=== PATIENT | female | born 1970 | race Caucasian/White ===

== ENCOUNTER 2016-12-15 13:42 | Emergency (ER) | payer MEDICAID, OTHER ==
--- NOTE | 2016-12-15 13:51 | EDM.PDOC ---
ED HPI ENT - General Chief Complaint: ENT Problem Stated Complaint: EAR HURTS Time Seen by Provider: 12/15/16 13:44 - History of Present Illness INITIAL COMMENTS - FREE TEXT/NARRATIVE: History of present illness: 46 female s/p left cholesteoma in 2005 with left ear pain x 2 months. She was seen in ED in [place] last month and was prescriped ear drops which helped her. She was also seen in this ED and given oflaxacin drop wheich helped. Now she has recurrent left ear pain with dry crusted material that fell off. No fever, chills, toothache, right ear ache, swollen lymph notes, n/v/d or other pertinent symptoms. [] Review of systems: As per history of present illness and below otherwise all systems reviewed and negative. Past medical history: As per history of present illness and as reviewed below otherwise noncontributory. Surgical history: As per history of present illness and as reviewed below otherwise noncontributory. Social history: No reported history of drug or alcohol abuse. Family history: As per history of present illness and as reviewed below otherwise noncontributory. Physical exam: General: Well developed, well nourished in NAD HEENT: Atraumatic, normocephalic, pupils reactive, negative for conjunctival pallor or scleral icterus, mucous membranes moist, throat clear, neck supple, nontender, trachea midline. Left Ear: no TM visualized. No erythema. has slight yellow-white discharge. Lungs: Clear to auscultation, breath sounds equal bilaterally, chest nontender. Heart: S1S2, regular, negative for clicks, rubs, or JVD. Abdomen: Soft, nondistended, nontender. Negative for masses or hepatosplenomegaly. Negative for costovertebral tenderness. Pelvis: Stable nontender. Genitourinary: Deferred. Rectal: Deferred. Extremities: Atraumatic, negative for cords or calf pain. Neurovascular unremarkable. Neuro: Awake, alert, oriented. Cranial nerves II through XII unremarkable. Cerebellum unremarkable. Motor and sensory unremarkable throughout. Exam nonfocal. Diagnostics: [] Therapeutics: [] Impression: [Left otits externa] Plan: [Rx corticosporin HC otic suspension x 10 days referral to ENT] Definitive disposition and diagnosis as appropriate pending reevaluation and review of above. - Related Data Allergies/ADRs: Allergies Allergy/AdvReac Type Severity Reaction Status Date / Time No Known Allergies Allergy Verified 12/15/16 13:51 Home Meds: Home Meds Gemfibrozil [Gemfibrozil] 1 tab PO BID 10/30/15 [History] Past Medical History Cardiovascular History: Reports: High cholesterol Other OB/BYN History: CSx1 Neurological History: Reports: None - Infectious Disease History Infectious Disease History: Reports: Chicken pox Social & Family History - Family History Family Medical History: Noncontributory - Tobacco Use Smoking Status *Q: Current Every Day Smoker Years of Tobacco use: 30 Packs/Tins Daily: 1 Used Tobacco, but Quit: No Second Hand Smoke Exposure: Yes - Caffeine Use Caffeine Use: Reports: Coffee - Recreational Drug Use Recreational Drug Use: No ED ROS ENT - Review of Systems Review Of Systems: See Below (see history of present illness) ED EXAM, ENT - Physical Exam Exam: See Below (see history of present illness) Course - Vital Signs Last Recorded V/S: Last Vital Signs Temp 97.7 F 12/15/16 13:52 Pulse 109 H 12/15/16 13:52 Resp 18 12/15/16 13:52 BP 140/66 12/15/16 13:52 Pulse Ox 95 12/15/16 13:52 Departure - Departure Time of Disposition: 14:26 Disposition: Home, Self-Care 01 Clinical Impression: Otitis externa Forms: ED Department Discharge Additional Instructions: The following information is given to patients seen in the emergency department who are being discharged to home. This information is to outline your options for follow-up care. We provide all patients seen in our emergency department with a follow-up referral. The need for follow-up, as well as the timing and circumstances, are variable depending upon the specifics of your emergency department visit. If you don't have a primary care physician on staff, we will provide you with a referral. We always advise you to contact your personal physician following an emergency department visit to inform them of the circumstance of the visit and for follow-up with them and/or the need for any referrals to a consulting specialist. The emergency department will also refer you to a specialist when appropriate. This referral assures that you have the opportunity for follow-up care with a specialist. All of these measure are taken in an effort to provide you with optimal care, which includes your follow-up. Under all circumstances we always encourage you to contact your private physician who remains a resource for coordinating your care. When calling for follow-up care, please make the office aware that this follow-up is from your recent emergency room visit. If for any reason you are refused follow-up, please contact the [facility] Emergency Department at and asked to speak to the emergency department charge nurse.
[2016-12-15 15:14] VITALS: BP 121/74
== END 2016-12-15 14:46 | disposition home or self-care (01) ==
LOC: MW.ED 13:42
DX: H60.92 Unspecified otitis externa, left ear (principal); F17.210 Nicotine dependence, cigarettes, uncomplicated; E78.00 Pure hypercholesterolemia, unspecified
CPT/HCPCS: 99282; 99283

== ENCOUNTER 2017-02-19 20:16 | Emergency (ER) | payer OTHER ==
[2017-02-19] MEDS ORDERED: Albuterol/Ipratropium 3.0-0.5 MG/3 ML Neb Soln NEB ONE (20:22)
--- NOTE | 2017-02-19 21:29 | EDM.PDOC ---
ED HPI GENERAL MEDICAL PROBLEM - General Chief Complaint: Respiratory Problem Stated Complaint: HARD TIME BREATHING Time Seen by Provider: 02/19/17 21:24 Source of Information: Reports: Patient History Limitations: Reports: No Limitations - History of Present Illness INITIAL COMMENTS - FREE TEXT/NARRATIVE: History of present illness: [46 yr old female coming in complaining of shortness of breath indicates that she knows that she has quit smoking but right now she is having trouble breathing. Patient indicated immediately that she just "wanted her breathing treatment" she was interested in "anything else"] Review of systems: As per history of present illness and below otherwise all systems reviewed and negative. Past medical history: As per history of present illness and as reviewed below otherwise noncontributory. Surgical history: As per history of present illness and as reviewed below otherwise noncontributory. Social history: No reported history of drug or alcohol abuse. Family history: As per history of present illness and as reviewed below otherwise noncontributory. Physical exam: HEENT: Atraumatic, normocephalic, pupils reactive, negative for conjunctival pallor or scleral icterus, mucous membranes moist, throat clear, neck supple, nontender, trachea midline. Lungs: Breath sounds diminished in all collado posterior lungs with minimal air movement, chest nontender. Heart: S1S2, regular, negative for clicks, rubs, or JVD. Abdomen: Soft, nondistended, nontender. Negative for masses or hepatosplenomegaly. Negative for costovertebral tenderness. Pelvis: Stable nontender. Genitourinary: Deferred. Rectal: Deferred. Extremities: Atraumatic, negative for cords or calf pain. Neurovascular unremarkable. Neuro: Awake, alert, oriented. Cranial nerves II through XII unremarkable. Cerebellum unremarkable. Motor and sensory unremarkable throughout. Exam nonfocal. Duo neb given. Patient now with a productive cough and indicating that she feels better. Breath sounds improved but still somewhat diminished patient declined further intervention states anything else makes her "shaky". Discussed need for patient followup with primary care and referral to pulmonology patient indicated she was uninsured. Information provided [facility]. Diagnostics: [CBC, CMP, UA] Therapeutics: [Duo neb] Impression: [UTI, SOB] Plan: [Macrobid] Definitive disposition and diagnosis as appropriate pending reevaluation and review of above. - Related Data Allergies Allergy/AdvReac Type Severity Reaction Status Date / Time No Known Allergies Allergy Verified 12/15/16 13:51 Home Meds: Home Meds Gemfibrozil [Gemfibrozil] 1 tab PO BID 10/30/15 [History] Nitrofurantoin Monohyd/M-Cryst [Macrobid 100 mg Capsule] 100 mg PO BID #20 capsule 02/19/17 [Rx] Past Medical History Cardiovascular History: Reports: High Cholesterol Other OB/BYN History: CSx1 Neurological History: Reports: None - Infectious Disease History Infectious Disease History: Reports: Chicken Pox Social & Family History - Family History Family Medical History: Noncontributory - Tobacco Use Smoking Status *Q: Current Every Day Smoker Years of Tobacco use: 30 Packs/Tins Daily: 1 Used Tobacco, but Quit: No Second Hand Smoke Exposure: Yes - Caffeine Use Caffeine Use: Reports: Coffee - Recreational Drug Use Recreational Drug Use: No ED ROS GENERAL - Review of Systems Review Of Systems: See Below (See history of present illness) ED EXAM, GENERAL - Physical Exam Exam: See Below (History of present illness) Course - Vital Signs Last Recorded V/S: Last Vital Signs Temp 36.5 C 02/19/17 20:16 Pulse 126 H 02/19/17 20:16 Resp 18 02/19/17 20:16 BP 203/86 H 02/19/17 20:16 Pulse Ox 95 02/19/17 20:16 - Orders/Labs/Meds Orders: Active Orders 24 hr Category Date Time Status RT Aerosol Therapy [RC] ASDIRECTED Care 02/19/17 20:22 Ordered CBC WITH AUTO DIFF [HEME] Stat Lab 02/19/17 20:23 Ordered COMPREHENSIVE METABOLIC PN,CMP [CHEM] Stat Lab 02/19/17 20:23 Ordered Labs: Laboratory Tests 02/19/17 02/19/17 02/19/17 Range/Units 20:48 20:48 20:55 WBC 10.91 (4.0-11.0) K/uL RBC 3.66 L (4.30-5.90) M/uL Hgb 13.6 (12.0-16.0) g/dL Hct 38.8 (36.0-46.0) % MCV 106.0 H (80.0-98.0) fL MCH 37.2 H (27.0-32.0) pg MCHC 35.1 (31.0-37.0) g/dL RDW Std Deviation 61.2 (28.0-62.0) fl RDW Coeff of Favio 16 H (11.0-15.0) % Plt Count 313 (150-400) K/uL MPV 10.50 (7.40-12.00) fL Add Manual Diff YES Neutrophils % (Manual) 46 L (48.0-80.0) % Band Neutrophils % 2 % Lymphocytes % (Manual) 43 H (16.0-40.0) % Monocytes % (Manual) 4 (0.0-15.0) % Eosinophils % (Manual) 3 (0.0-7.0) % Basophils % (Manual) 2 H (0.0-1.5) % Nucleated RBC % 0.0 /100WBC Absolute Seg Neuts 5.0 Band Neutrophils # 0.2 Lymphocytes # (Manual) 4.7 Monocytes # (Manual) 0.4 Eosinophils # (Manual) 0.3 Basophils # (Manual) 0 Nucleated RBCs # 0 K/uL Urine Color YELLOW Urine Appearance SLT CLOUDY Urine pH 7.0 (5.0-8.0) Ur Specific [place] <= 1.005 (1.001-1.035) Urine Protein NEGATIVE (NEGATIVE) mg/dL Urine Glucose (UA) NEGATIVE (NEGATIVE) mg/dL Urine Ketones NEGATIVE (NEGATIVE) mg/dL Urine Occult Blood TRACE-INTACT (NEGATIVE) Urine Nitrite NEGATIVE (NEGATIVE) Urine Bilirubin NEGATIVE (NEGATIVE) Urine Urobilinogen 0.2 (<2.0) EU/dL Ur Leukocyte Esterase LARGE (NEGATIVE) Urine RBC 1-2 (0-2/HPF) Urine WBC 2-7 (0-5/HPF) Ur Epithelial Cells FEW (NONE-FEW) Urine Bacteria 1+ H (NEGATIVE) Urine Opiates Screen NEGATIVE (NEGATIVE) Ur Oxycodone Screen NEGATIVE (NEGATIVE) Urine Methadone Screen NEGATIVE (NEGATIVE) Ur Barbiturates Screen NEGATIVE (NEGATIVE) Ur Phencyclidine Scrn NEGATIVE (NEGATIVE) Ur Amphetamine Screen NEGATIVE (NEGATIVE) U Methamphetamines Scrn NEGATIVE (NEGATIVE) U Benzodiazepines Scrn NEGATIVE (NEGATIVE) U Cocaine Metab Screen NEGATIVE (NEGATIVE) U Marijuana (THC) Screen NEGATIVE (NEGATIVE) Meds: Medications Discontinued Medications Generic Name Dose Route Start Last Admin Trade Name Freq PRN Reason Stop Dose Admin Albuterol/Ipratropium 3 ml 02/19/17 20:22 02/19/17 20:28 Duoneb 3.0-0.5 Mg/3 Ml NEB 02/19/17 20:23 3 ml ONETIME ONE Administration Departure - Departure Time of Disposition: 21:32 Disposition: Home, Self-Care 01 Condition: good Clinical Impression: Exacerbation of asthma, UTI (urinary tract infection) - Discharge Information Prescriptions: Nitrofurantoin Monohyd/M-Cryst [Macrobid 100 mg Capsule] 100 mg PO BID #20 capsule Forms: ED Department Discharge Additional Instructions: The following information is given to patients seen in the emergency department who are being discharged to home. This information is to outline your options for follow-up care. We provide all patients seen in our emergency department with a follow-up referral. The need for follow-up, as well as the timing and circumstances, are variable depending upon the specifics of your emergency department visit. If you don't have a primary care physician on staff, we will provide you with a referral. We always advise you to contact your personal physician following an emergency department visit to inform them of the circumstance of the visit and for follow-up with them and/or the need for any referrals to a consulting specialist. The emergency department will also refer you to a specialist when appropriate. This referral assures that you have the opportunity for follow-up care with a specialist. All of these measure are taken in an effort to provide you with optimal care, which includes your follow-up. Under all circumstances we always encourage you to contact your private physician who remains a resource for coordinating your care. When calling for follow-up care, please make the office aware that this follow-up is from your recent emergency room visit. If for any reason you are refused follow-up, please contact the [facility] Emergency Department at and asked to speak to the emergency department charge nurse. Please take medication as directed Followup with PCP 1-2 days Return to ED as needed as discussed As discussed with you due to your low threshold of income he would be eligible for some nature of assistance with the [employer] act. You may find further information about this on line or at the psychosocial rehabilitation counselor office sometimes it is also refer to as Obamacare. [facility] [address] [place] [id number] - My Orders Last 24 Hours: My Active Orders 02/19/17 20:22 RT Aerosol Therapy [RC] ASDIRECTED 02/19/17 20:23 CBC WITH AUTO DIFF [HEME] Stat COMPREHENSIVE METABOLIC PN,CMP [CHEM] Stat - Assessment/Plan Last 24 Hours: My Active Orders 02/19/17 20:22 RT Aerosol Therapy [RC] ASDIRECTED 02/19/17 20:23 CBC WITH AUTO DIFF [HEME] Stat COMPREHENSIVE METABOLIC PN,CMP [CHEM] Stat
[2017-02-19 22:03] LABS: CHLORIDE,CL 100 mmol/L (98-110)
[2017-02-19 22:06] LABS: SODIUM,NA 140 mmol/L (136-146)
[2017-02-20 02:19] VITALS: BP 123/86
== END 2017-02-19 21:55 | disposition home or self-care (01) ==
LOC: MW.ED 20:16
DX: J45.901 Unspecified asthma with (acute) exacerbation (principal); N39.0 Urinary tract infection, site not specified; F17.210 Nicotine dependence, cigarettes, uncomplicated; Z98.890 Other specified postprocedural states
CPT/HCPCS: 36415; 80053; 80305; 81001; 85025; 94664; 99283; 99284

== ENCOUNTER 2017-05-03 19:10 | Emergency (ER) | payer OTHER, SELFPAY ==
--- NOTE | 2017-05-03 19:30 | EDM.PDOC ---
ED HPI GENERAL MEDICAL PROBLEM - General Chief Complaint: Respiratory Problem Stated Complaint: asthma attack, sob Time Seen by Provider: 05/03/17 19:16 - History of Present Illness INITIAL COMMENTS - FREE TEXT/NARRATIVE: HISTORY AND PHYSICAL: History of present illness: Patient is a 46-year-old female with a history of hypercholesterolemia anxiety asthma and alcohol use and presents with complaints of shortness of breath and anxiety that started 1-2 hours ago. The patient presented to triage stating that she felt short of breath but by the time I got into the room to see her she says that her symptoms are completely resolved. She feels she just had an episode of anxiety as her daughter was arrested today and aside from taking care of her own children she has to take care of her grandchildren. She does state that she drinks alcohol on a regular basis and she did drink today but not very much. She's been eating and drinking normally and has no chest pain shortness of breath abdominal pain nausea vomiting or any other systemic complaints on my evaluation. Review of systems: As per history of present illness and below otherwise all systems reviewed and negative. Past medical history: As per history of present illness and as reviewed below otherwise noncontributory. Surgical history: As per history of present illness and as reviewed below otherwise noncontributory. Social history: No reported history of drug or alcohol abuse. Family history: As per history of present illness and as reviewed below otherwise noncontributory. Physical exam: Gen.: Well-developed well-nourished female who is nontoxic and speaking clearly and easily in the ED. HEENT: Atraumatic, normocephalic, pupils reactive, negative for conjunctival pallor or scleral icterus, mucous membranes tacky, throat clear, neck supple, nontender, trachea midline. Lungs: Clear to auscultation, breath sounds equal bilaterally, chest nontender. There is no wheezing no stridor no worker breathing or sensory muscle use Heart: S1S2, regular rate and rhythm no overt murmur on my evaluation Abdomen: Soft, nondistended, nontender. NABS Skin: Normal turgor no evidence of any rashes or lesions Genitourinary: Deferred. Rectal: Deferred. Extremities: Atraumatic, negative for cords or calf pain. Neurovascular unremarkable. Neuro: Awake, alert, oriented. Cranial nerves II through XII unremarkable. Cerebellum unremarkable. Motor and sensory unremarkable throughout. Exam nonfocal. Diagnostics: I offered the patient and evaluation which she would like to decline Therapeutics: I offered the patient a aundrea curry due to her complaints of shortness of breath at presentation and her history of asthma/bronchitis and she declines at this time Patient says she doesn't want any testing or workup and that she feels completely resolved from her symptoms and think she just had a panic attack due to recent events. She would like to decline any of my evaluation and wants to go home Impression: Medical Screening exam/subjective anxiety attack resolved prior to evaluation Definitive disposition and diagnosis as appropriate pending reevaluation and review of above. 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: Other OB/BYN History: CSx1 Neurological History: Reports: None Psychiatric History: Reports: Anxiety - Infectious Disease History Infectious Disease History: Reports: Chicken Pox - Past Surgical History Female Surgical History: Reports: Section Social & Family History - Family History Family Medical History: Noncontributory - Tobacco Use Smoking Status *Q: Current Every Day Smoker Years of Tobacco use: 25 Packs/Tins Daily: 1 Used Tobacco, but Quit: No Second Hand Smoke Exposure: Yes - Caffeine Use Caffeine Use: Reports: Coffee - Recreational Drug Use Recreational Drug Use: Yes Recreational Drug Type: Reports: Methamphetamine Recreational Drug Use Frequency: Not Used In Over 1 Year ED ROS GENERAL - Review of Systems Review Of Systems: ROS reveals no pertinent complaints other than HPI. ED EXAM, GENERAL - Physical Exam Exam: See Below (See dictation) Course - Vital Signs Last Recorded V/S: Last Vital Signs Temp 36.2 C 05/03/17 19:12 Pulse 99 05/03/17 19:12 Resp 18 05/03/17 19:12 BP 177/98 H 05/03/17 19:12 Pulse Ox 95 05/03/17 19:12 Departure - Departure Time of Disposition: 19:29 Disposition: Home, Self-Care 01 Condition: Good Clinical Impression: Encounter for medical screening examination, Anxiety reaction - Discharge Information Forms: ED Department Discharge Additional Instructions: The following information is given to patients seen in the emergency department who are being discharged to home. This information is to outline your options for follow-up care. We provide all patients seen in our emergency department with a follow-up referral. The need for follow-up, as well as the timing and circumstances, are variable depending upon the specifics of your emergency department visit. If you don't have a primary care physician on staff, we will provide you with a referral. We always advise you to contact your personal physician following an emergency department visit to inform them of the circumstance of the visit and for follow-up with them and/or the need for any referrals to a consulting specialist. The emergency department will also refer you to a specialist when appropriate. This referral assures that you have the opportunity for followup care with a specialist. All of these measure are taken in an effort to provide you with optimal care, which includes your followup. Under all circumstances we always encourage you to contact your private physician who remains a resource for coordinating your care. When calling for followup care, please make the office aware that this follow-up is from your recent emergency room visit. If for any reason you are refused follow-up, please contact the [facility] emergency department at and ask to speak to the emergency department charge nurse. [facility] Primary care- Internal Medicine and Family [address] [id number] Please call and follow-up with one of our clinic physicians and push hydration as we discussed. Try to avoid alcohol use if possible and use resources given to her outpatient options. Return to ER as needed and as discussed
[2017-05-03 19:44] VITALS: BP 143/93
== END 2017-05-03 19:41 | disposition home or self-care (01) ==
LOC: MW.ED 19:10
DX: F41.1 Generalized anxiety disorder (principal); J44.9 Chronic obstructive pulmonary disease, unspecified; E78.00 Pure hypercholesterolemia, unspecified; F17.210 Nicotine dependence, cigarettes, uncomplicated
CPT/HCPCS: 99282; 99283

== ENCOUNTER 2017-08-17 21:42 | Emergency (ER) | payer OTHER, SELFPAY ==
[2017-08-17] MEDS ORDERED: Sodium Chloride 0.9% 1,000 ML IV ONE (21:51)
--- NOTE | 2017-08-17 21:51 | EDM.PDOC ---
ED HPI GENERAL MEDICAL PROBLEM - General Stated Complaint: UNKNOWN Time Seen by Provider: 08/17/17 21:51 Source of Information: Reports: Patient, EMS - History of Present Illness INITIAL COMMENTS - FREE TEXT/NARRATIVE: HISTORY AND PHYSICAL: History of present illness: [Patient presents via EMS She has suicide attempt by ingestion of drugs is he 50 mg tablets is believed she did ingestion 30 tablets prior to arrival, she is vomited several times her daughter notes that there were many pills in the first episode of vomiting. Patient is alert and relates these events to a child's 16 years prior she is had several ingestion and attempts in the interim but has not been seen by psych or another physician per patient night. She is quite intoxicated. No fever chills sweats no chest pain shortness breath headache dizziness or palpitation no bowel or urine symptoms Denies previous psychiatric diagnosis chronic illness or disease denies chronic medications Medications tonight where her daughters apparently she did fill the prescription and then taken the medication. ] Review of systems: As per history of present illness and below otherwise all systems reviewed and negative. Past medical history: As per history of present illness and as reviewed below otherwise noncontributory. Surgical history: As per history of present illness and as reviewed below otherwise noncontributory. Social history: No reported history of drug or alcohol abuse. Family history: As per history of present illness and as reviewed below otherwise noncontributory. Physical exam: HEENT: Atraumatic, normocephalic, pupils reactive, negative for conjunctival pallor or scleral icterus, mucous membranes moist, throat clear, neck supple, nontender, trachea midline. Lungs: Clear to auscultation, breath sounds equal bilaterally, chest nontender. Heart: S1S2, regular, negative for clicks, rubs, or JVD. Abdomen: Soft, nondistended, nontender. Negative for masses or hepatosplenomegaly. Negative for costovertebral tenderness. Pelvis: Stable nontender. Genitourinary: Deferred. Rectal: Deferred. Extremities: Atraumatic, negative for cords or calf pain. Neurovascular unremarkable. Neuro: Awake, alert, oriented. Cranial nerves II through XII unremarkable. Cerebellum unremarkable. Motor and sensory unremarkable throughout. Exam nonfocal. Diagnostics: []Lab as below EKG Chest 1 view Therapeutics: []Banana bag Normal saline with 40 mEq of potassium Impression: []Suicide attempt by ingestion Hyperkalemia Alcohol intoxication Alcohol use abuse and dependence Definitive disposition and diagnosis as appropriate pending reevaluation and review of above. 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 OB/BYN History: CSx1 Musculoskeletal History: Reports: None Neurological History: Reports: None Psychiatric History: Reports: Anxiety Endocrine/Metabolic History: Reports: None Hematologic History: Reports: None Dermatologic History: Reports: None - Infectious Disease History Infectious Disease History: Reports: Chicken Pox - Past Surgical History Female Surgical History: Reports: Section Social & Family History - Family History Family Medical History: Noncontributory - Tobacco Use Smoking Status *Q: Current Every Day Smoker Years of Tobacco use: 25 Packs/Tins Daily: 1 Used Tobacco, but Quit: No Second Hand Smoke Exposure: Yes - Caffeine Use Caffeine Use: Reports: Coffee - Recreational Drug Use Recreational Drug Use: Yes Recreational Drug Type: Reports: Methamphetamine Recreational Drug Use Frequency: Not Used In Over 1 Year ED ROS GENERAL - Review of Systems Review Of Systems: ROS reveals no pertinent complaints other than HPI. ED EXAM, GENERAL - Physical Exam Exam: See Below Course - Vital Signs Last Recorded V/S: Last Vital Signs Temp 97.2 F 08/17/17 22:47 Pulse 94 08/17/17 23:44 Resp 18 08/17/17 23:44 BP 135/94 H 08/17/17 22:47 Pulse Ox 95 08/17/17 23:44 - Orders/Labs/Meds Orders: Active Orders 24 hr Category Date Time Status EKG 12 Lead [EKG Documentation Completion] [RC] STAT Care 08/17/17 22:59 Active EKG Documentation Completion [RC] STAT Care 08/17/17 21:49 Active Chest 1V Frontal [CR] Stat Exams 08/17/17 21:49 Taken MVI, Adult with Vitamin K [Infuvite Adult] 10 ml Med 08/17/17 22:37 Active Thiamine [Vitamin B-1] 100 mg Folic Acid 1 mg Sodium Chloride 0.9% [Normal Saline] 1,000 ml IV ONETIME Potassium Chloride 40 meq Med 08/17/17 22:58 Active Sodium Chloride 0.9% [Normal Saline] 1,000 ml IV ONETIME Medication Orders Multivitamins/Minerals 10 ml/Thiamine HCl 100 mg/ Folic Acid 1 mg/ Sodium Chloride 1,011.2 mls @ 200 mls/hr IV ONETIME ONE Stop: 08/18/17 03:40 Last Admin: 08/17/17 23:23 Dose: 200 mls/hr Potassium Chloride 40 meq/ (Sodium Chloride) 1,020 mls @ 125 mls/hr IV ONETIME ONE Stop: 08/18/17 07:07 Last Admin: 08/17/17 23:35 Dose: 125 mls/hr Labs: Laboratory Tests 08/17/17 08/17/17 08/17/17 Range/Units 21:58 21:58 23:20 WBC 10.62 (4.0-11.0) K/uL RBC 3.98 L (4.30-5.90) M/uL Hgb 14.4 (12.0-16.0) g/dL Hct 42.2 (36.0-46.0) % MCV 106.0 H (80.0-98.0) fL MCH 36.2 H (27.0-32.0) pg MCHC 34.1 (31.0-37.0) g/dL RDW Std Deviation 50.3 (28.0-62.0) fl RDW Coeff of Favio 13 (11.0-15.0) % Plt Count 218 (150-400) K/uL MPV 10.00 (7.40-12.00) fL Neut % (Auto) 45.1 L (48.0-80.0) % Lymph % (Auto) 42.3 H (16.0-40.0) % [place] % (Auto) 9.8 (0.0-15.0) % Eos % (Auto) 2.0 (0.0-7.0) % Baso % (Auto) 0.8 (0.0-1.5) % Neut # (Auto) 4.8 (1.4-5.7) K/uL Lymph # (Auto) 4.5 H (0.6-2.4) K/uL [place] # (Auto) 1.0 H (0.0-0.8) K/uL Eos # (Auto) 0.2 (0.0-0.7) K/uL Baso # (Auto) 0.1 (0.0-0.1) K/uL Nucleated RBC % 0.0 /100WBC Nucleated RBCs # 0 K/uL Sodium 142 (136-146) mmol/L Potassium 2.9 L (3.5-5.1) mmol/L Chloride 106 (98-110) mmol/L Carbon Dioxide 23 (21-31) mmol/L BUN 10 (6.0-23.0) mg/dL Creatinine 0.7 (0.6-1.5) mg/dL Est Cr Clr Drug Dosing 101.30 mL/min Estimated GFR (MDRD) > 60.0 ml/min Glucose 161 H (60-110) mg/dL Calcium 8.5 L (8.8-10.8) mg/dL Total Bilirubin 0.2 (0.1-1.5) mg/dL AST 83 H (5-40) IU/L ALT 45 (8-54) IU/L Alkaline Phosphatase 114 (40-150) Troponin I < 0.10 (0.0-0.29) NG/ML Total Protein 7.5 (6.0-8.0) g/dL Albumin 4.3 (3.5-5.0) g/dL Globulin 3.2 (2.0-3.5) g/dL Albumin/Globulin Ratio 1.3 (1.3-2.8) TSH 3rd Generation 0.90 (0.47-5.0) uIU/mL Urine Color Urine Appearance Urine pH (5.0-8.0) Ur Specific [place] (1.001-1.035) Urine Protein (NEGATIVE) mg/dL Urine Glucose (UA) (NEGATIVE) mg/dL Urine Ketones (NEGATIVE) mg/dL Urine Occult Blood (NEGATIVE) Urine Nitrite (NEGATIVE) Urine Bilirubin (NEGATIVE) Urine Urobilinogen (<2.0) EU/dL Ur Leukocyte Esterase (NEGATIVE) Urine RBC (0-2/HPF) Urine WBC (0-5/HPF) Ur Epithelial Cells (NONE-FEW) Urine Bacteria (NEGATIVE) Urine HCG, Qual (NEGATIVE) Salicylates < 5.0 (0-20) mg/dL Urine Opiates Screen NEGATIVE (NEGATIVE) Ur Oxycodone Screen NEGATIVE (NEGATIVE) Urine Methadone Screen NEGATIVE (NEGATIVE) Acetaminophen < 3.0 ug/mL Ur Barbiturates Screen NEGATIVE (NEGATIVE) Ur Phencyclidine Scrn NEGATIVE (NEGATIVE) Ur Amphetamine Screen NEGATIVE (NEGATIVE) U Methamphetamines Scrn NEGATIVE (NEGATIVE) U Benzodiazepines Scrn NEGATIVE (NEGATIVE) U Cocaine Metab Screen NEGATIVE (NEGATIVE) U Marijuana (THC) Screen NEGATIVE (NEGATIVE) Ethyl Alcohol 438.1 mg/dL 08/17/17 08/17/17 Range/Units 23:20 23:20 WBC (4.0-11.0) K/uL RBC (4.30-5.90) M/uL Hgb (12.0-16.0) g/dL Hct (36.0-46.0) % MCV (80.0-98.0) fL MCH (27.0-32.0) pg MCHC (31.0-37.0) g/dL RDW Std Deviation (28.0-62.0) fl RDW Coeff of Favio (11.0-15.0) % Plt Count (150-400) K/uL MPV (7.40-12.00) fL Neut % (Auto) (48.0-80.0) % Lymph % (Auto) (16.0-40.0) % [place] % (Auto) (0.0-15.0) % Eos % (Auto) (0.0-7.0) % Baso % (Auto) (0.0-1.5) % Neut # (Auto) (1.4-5.7) K/uL Lymph # (Auto) (0.6-2.4) K/uL [place] # (Auto) (0.0-0.8) K/uL Eos # (Auto) (0.0-0.7) K/uL Baso # (Auto) (0.0-0.1) K/uL Nucleated RBC % /100WBC Nucleated RBCs # K/uL Sodium (136-146) mmol/L Potassium (3.5-5.1) mmol/L Chloride (98-110) mmol/L Carbon Dioxide (21-31) mmol/L BUN (6.0-23.0) mg/dL Creatinine (0.6-1.5) mg/dL Est Cr Clr Drug Dosing mL/min Estimated GFR (MDRD) ml/min Glucose (60-110) mg/dL Calcium (8.8-10.8) mg/dL Total Bilirubin (0.1-1.5) mg/dL AST (5-40) IU/L ALT (8-54) IU/L Alkaline Phosphatase (40-150) Troponin I (0.0-0.29) NG/ML Total Protein (6.0-8.0) g/dL Albumin (3.5-5.0) g/dL Globulin (2.0-3.5) g/dL Albumin/Globulin Ratio (1.3-2.8) TSH 3rd Generation (0.47-5.0) uIU/mL Urine Color YELLOW Urine Appearance CLEAR Urine pH 6.0 (5.0-8.0) Ur Specific [place] <= 1.005 (1.001-1.035) Urine Protein NEGATIVE (NEGATIVE) mg/dL Urine Glucose (UA) NEGATIVE (NEGATIVE) mg/dL Urine Ketones NEGATIVE (NEGATIVE) mg/dL Urine Occult Blood TRACE-LYSED (NEGATIVE) Urine Nitrite NEGATIVE (NEGATIVE) Urine Bilirubin NEGATIVE (NEGATIVE) Urine Urobilinogen 0.2 (<2.0) EU/dL Ur Leukocyte Esterase NEGATIVE (NEGATIVE) Urine RBC 0-1 (0-2/HPF) Urine WBC 0-1 (0-5/HPF) Ur Epithelial Cells FEW (NONE-FEW) Urine Bacteria RARE (NEGATIVE) Urine HCG, Qual NEGATIVE (NEGATIVE) Salicylates (0-20) mg/dL Urine Opiates Screen (NEGATIVE) Ur Oxycodone Screen (NEGATIVE) Urine Methadone Screen (NEGATIVE) Acetaminophen ug/mL Ur Barbiturates Screen (NEGATIVE) Ur Phencyclidine Scrn (NEGATIVE) Ur Amphetamine Screen (NEGATIVE) U Methamphetamines Scrn (NEGATIVE) U Benzodiazepines Scrn (NEGATIVE) U Cocaine Metab Screen (NEGATIVE) U Marijuana (THC) Screen (NEGATIVE) Ethyl Alcohol mg/dL Meds: Medications Generic Name Dose Route Start Last Admin Trade Name Freq PRN Reason Stop Dose Admin Multivitamins/Minerals 10 ml/ 1,011.2 mls @ 200 mls/hr 08/17/17 22:37 23:23 Thiamine HCl 100 mg/ Folic IV 08/18/17 03:40 200 mls/hr Acid 1 mg/ Sodium Chloride ONETIME ONE Administration Potassium Chloride 40 meq/ 1,020 mls @ 125 mls/hr 08/17/17 22:58 08/17/17 23: 35 Sodium Chloride IV 08/18/17 07:07 125 mls/hr ONETIME ONE Administration Discontinued Medications Generic Name Dose Route Start Last Admin Trade Name Mayur PRN Reason Stop Dose Admin Sodium Chloride 1,000 mls @ 999 mls/hr 08/17/17 21:51 08/17/17 22:27 Normal Saline IV 08/17/17 22:51 999 mls/hr STAT ONE Administration Ondansetron HCl 8 mg 08/17/17 22:04 08/17/17 22:31 Zofran IVPUSH 08/17/17 22:05 8 mg ONETIME ONE Administration Departure - Departure Time of Disposition: 00:17 Disposition: DC/Tfer to Other 70 Condition: Fair Clinical Impression: Suicide attempt by drug ingestion - Discharge Information - My Orders Last 24 Hours: My Active Orders 08/17/17 21:49 EKG Documentation Completion [RC] STAT Chest 1V Frontal [CR] Stat 08/17/17 22:37 MVI, Adult with Vitamin K [Infuvite Adult] 10 ml Thiamine [Vitamin B-1] 100 mg Folic Acid 1 mg Sodium Chloride 0.9% [Normal Saline] 1,000 ml IV ONETIME 08/17/17 22:58 Potassium Chloride 40 meq Sodium Chloride 0.9% [Normal Saline] 1,000 ml IV ONETIME 08/17/17 22:59 EKG 12 Lead [EKG Documentation Completion] [RC] STAT - Assessment/Plan Last 24 Hours: My Active Orders 08/17/17 21:49 EKG Documentation Completion [RC] STAT Chest 1V Frontal [CR] Stat 08/17/17 22:37 MVI, Adult with Vitamin K [Infuvite Adult] 10 ml Thiamine [Vitamin B-1] 100 mg Folic Acid 1 mg Sodium Chloride 0.9% [Normal Saline] 1,000 ml IV ONETIME 08/17/17 22:58 Potassium Chloride 40 meq Sodium Chloride 0.9% [Normal Saline] 1,000 ml IV ONETIME 08/17/17 22:59 EKG 12 Lead [EKG Documentation Completion] [RC] STAT
[2017-08-17] MEDS ORDERED: Ondansetron 4 MG/2 ML SDV IVPUSH ONE (22:04)
[2017-08-17 22:28] LABS: ACETAMINOPHEN < 3.0 ug/mL; CHLORIDE,CL 106 mmol/L (98-110); SODIUM,NA 142 mmol/L (136-146)
[2017-08-17] MEDS ORDERED: MVI, Adult with Vitamin K 10 ML, Thiamine 100 MG, Folic Acid 1 MG in Sodium Chloride 0.... IV ONE ×4 (22:37)
[2017-08-17 22:48] VITALS: BP 135/94
--- NOTE | 2017-08-19 11:54 | CR ---
EXAM DATE: 08/17/17 PATIENT'S AGE: 46 Patient: AIDA TESFAYE Facility: [place], [place] Site . Site : 1970 Study: XRay Chest [id number] 11:07:42 PM Ordering Physician: Mihaela Bell Final Report: INDICATION: Chest pain TECHNIQUE: Chest radiograph 1 view COMPARISON: None FINDINGS: Cardiovascular and mediastinum: The cardiac silhouette is normal in appearance and size. Mediastinum is within normal limits. Lungs and pleural spaces: Both lungs are unremarkable in appearance. No sign of pleural effusion. No pneumothorax is seen. Bones and soft tissues: Unremarkable. IMPRESSION: 1. No acute cardiopulmonary disease seen. Dictated by: Gilbert Zambrano MD @ 08/17/2017 23:13:43 (Electronic Signature) Report Signed by Proxy. [facility] PARTNERSTabby
== END 2017-08-18 00:55 | disposition other institution (70) ==
LOC: MW.ED 21:42
DX: T43.592A Poisoning by other antipsychotics and neuroleptics, intentional self-harm, initial encounter (principal); F10.229 Alcohol dependence with intoxication, unspecified; E78.00 Pure hypercholesterolemia, unspecified; E87.5 Hyperkalemia; F17.210 Nicotine dependence, cigarettes, uncomplicated; Y90.8 Blood alcohol level of 240 mg/100 ml or more
CPT/HCPCS: 36415; 71010; 80053; 80305; 81001; 81025; 84443; 84484; 85025; 93005; 96361; 96365; 96366; 96375; 99285; G0480; J2405; J3411; J3480; J7040

== ENCOUNTER 2017-12-17 23:28 | Emergency (ER) | payer OTHER, SELFPAY ==
--- NOTE | 2017-12-17 23:47 | EDM.PDOC ---
ED HPI GENERAL MEDICAL PROBLEM - General Chief Complaint: General Stated Complaint: MEDICAL CLEARANCE Time Seen by Provider: 12/17/17 23:45 Source of Information: Reports: Patient - History of Present Illness INITIAL COMMENTS - FREE TEXT/NARRATIVE: HISTORY AND PHYSICAL: History of present illness: [Patient is here for medical clearance, she was arrested for DUI tonight at around 9 PM, she presents at midnight. She is alert talkative in no apparent distress she has no complaints such as fever nausea vomiting diarrhea constipation chest pain shortness breath headache dizziness palpitation no bowel or urine symptoms Patient is alert and cooperative ] On antibiotics history of asthma on albuterol HFA Review of systems: As per history of present illness and below otherwise all systems reviewed and negative. Past medical history: As per history of present illness and as reviewed below otherwise noncontributory. Surgical history: As per history of present illness and as reviewed below otherwise noncontributory. Social history: No reported history of drug or alcohol abuse. Family history: As per history of present illness and as reviewed below otherwise noncontributory. Physical exam: HEENT: Atraumatic, normocephalic, pupils reactive, negative for conjunctival pallor or scleral icterus, mucous membranes moist, throat clear, neck supple, nontender, trachea midline. Lungs: Clear to auscultation, breath sounds equal bilaterally, chest nontender. Heart: S1S2, regular, negative for clicks, rubs, or JVD. Abdomen: Soft, nondistended, nontender. Negative for masses or hepatosplenomegaly. Negative for costovertebral tenderness. Pelvis: Stable nontender. Genitourinary: Deferred. Rectal: Deferred. Extremities: Atraumatic, negative for cords or calf pain. Neurovascular unremarkable. Neuro: Awake, alert, oriented. Cranial nerves II through XII unremarkable. Cerebellum unremarkable. Motor and sensory unremarkable throughout. Exam nonfocal. Diagnostics: [Clinical ] Therapeutics: [Albuterol HFA when necessary ] Impression: [Alcohol intoxication Chronic history of asthma] Encounter for medical clearance Definitive disposition and diagnosis as appropriate pending reevaluation and review of above. - Related Data Allergies Allergy/AdvReac Type Severity Reaction Status Date / Time No Known Allergies Allergy Verified 12/17/17 23:43 Home Meds: Home Meds . 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 OB/BYN History: CSx1 Musculoskeletal History: Reports: None Neurological History: Reports: None Psychiatric History: Reports: Anxiety Endocrine/Metabolic History: Reports: None Hematologic History: Reports: None Immunologic History: Reports: None Oncologic (Cancer) History: Reports: None Dermatologic History: Reports: None - Infectious Disease History Infectious Disease History: Reports: Chicken Pox - Past Surgical History Female Surgical History: Reports: Section Social & Family History - Family History Family Medical History: Noncontributory - Tobacco Use Smoking Status *Q: Current Every Day Smoker Years of Tobacco use: 25 Packs/Tins Daily: 1 Used Tobacco, but Quit: No Second Hand Smoke Exposure: Yes - Caffeine Use Caffeine Use: Reports: Coffee - Recreational Drug Use Recreational Drug Use: Yes Recreational Drug Type: Reports: Methamphetamine Recreational Drug Use Frequency: Not Used In Over 1 Year ED ROS GENERAL - Review of Systems Review Of Systems: ROS reveals no pertinent complaints other than HPI. ED EXAM, GENERAL - Physical Exam Exam: See Below Course - Vital Signs Last Recorded V/S: Last Vital Signs Temp 98.1 F 12/17/17 23:28 Pulse 116 H 12/17/17 23:28 Resp 18 12/17/17 23:28 BP 143/79 H 12/17/17 23:28 Pulse Ox 95 12/17/17 23:28 Departure - Departure Time of Disposition: 23:46 Disposition: Home, Self-Care 01 Condition: Good Clinical Impression: Alcohol intoxication - Discharge Information Referrals: PCP,None [Primary Care Provider] - Additional Instructions: The following information is given to patients seen in the emergency department who are being discharged to home. This information is to outline your options for follow-up care. We provide all patients seen in our emergency department with a follow-up referral. The need for follow-up, as well as the timing and circumstances, are variable depending upon the specifics of your emergency department visit. If you don't have a primary care physician on staff, we will provide you with a referral. We always advise you to contact your personal physician following an emergency department visit to inform them of the circumstance of the visit and for follow-up with them and/or the need for any referrals to a consulting specialist. The emergency department will also refer you to a specialist when appropriate. This referral assures that you have the opportunity for follow-up care with a specialist. All of these measure are taken in an effort to provide you with optimal care, which includes your follow-up. Under all circumstances we always encourage you to contact your private physician who remains a resource for coordinating your care. When calling for follow-up care, please make the office aware that this follow-up is from your recent emergency room visit. If for any reason you are refused follow-up, please contact the [facility] emergency department at and asked to speak to the emergency department charge nurse.
[2017-12-17 23:55] VITALS: BP 127/74
== END 2017-12-17 23:57 | disposition home or self-care (01) ==
LOC: MW.ED 23:28
DX: F10.129 Alcohol abuse with intoxication, unspecified (principal); J44.9 Chronic obstructive pulmonary disease, unspecified; F17.210 Nicotine dependence, cigarettes, uncomplicated
CPT/HCPCS: 99282; 99283

== ENCOUNTER 2018-02-13 10:37 | Observation (INO) | payer OTHER, SELFPAY ==
[2018-02-13] MEDS ORDERED: Sodium Chloride 0.9% 2.5 ML Syringe FLUSH PRN (10:40)
[2018-02-13] MEDS ORDERED: Aspirin 81 MG Tab.Chew PO ONE (10:40)
[2018-02-13] MEDS ORDERED: Sodium Chloride 0.9% 10 ML Syringe FLUSH PRN (10:40)
[2018-02-13] MEDS ORDERED: Sodium Chloride 0.9% 1,000 ML IV ONE (10:40)
[2018-02-13] MEDS ORDERED: Nitroglycerin 0.4 MG Tab.SL SL ONE (10:40)
--- NOTE | 2018-02-13 10:47 | EDM.PDOC ---
ED HPI GENERAL MEDICAL PROBLEM - General Chief Complaint: Chest Pain Stated Complaint: CHEST PAIN Time Seen by Provider: 02/13/18 10:44 Source of Information: Reports: Patient History Limitations: Reports: No Limitations - History of Present Illness INITIAL COMMENTS - FREE TEXT/NARRATIVE: HISTORY AND PHYSICAL: []47-year-old female presenting with midsternal anterior chest pain for the last 20 minutes History of Present Illness: []Patient has had this in the past and it has just gone away No activity while this was occurring Review of Systems: As per history of present illness and below otherwise all systems reviewed and negative. Past medical history: As per history of present illness and as reviewed below otherwise noncontributory. Surgical history: As per history of present illness and as reviewed below otherwise noncontributory. Social history: No reported history of drug or alcohol abuse. Family history: As per history of present illness and as reviewed below otherwise noncontributory. Physical exam: Alert and oriented female answering questions appropriately in full sentences no shortness breath noted HEENT: Atraumatic, normocehpalic, pupils reactive, negative for conjunctival pallor or scleral icterus, mucous membranes moist, throat clear, neck supple, nontender, trachea midline. Lungs: Clear to auscultation, breath sounds equal bilaterally, chest non tender. Heart: S1S2, regular, negative for clicks, rubs, or JVD. Abdomen: Soft, nondistended, nontender. Negative for masses or hepatossplenmegaly. Negative for costovertebral tenderness. Pelvis: Stable nontender. Genitourinary: Deferred. Rectal: Deferred Extremities: Atraumatic, negative for cords or calf pain. Neurovascular unremarkable. Neuro: Awake, alert, oriented. Cranial nerves II through XII unremarkable. Cerebellum unremarkable. Motor and sensory unremarkable throughout. Exam nonfocal. Pain was relieved after one nitroglycerin Discussed this case with Dr. Pedraza accepted patient for observation on telemetry. Pain relief after 1 nitrostat Discussed with the patient on my concerns she needs to be reevaluated and laboratory values rechecked she is agreeable for observation Diagnostics: []CBC CMP EKG amylase lipase PT/INR d-dimer chest x-ray Therapeutics: []Aspirin Nitrostat Impression: []chest pain Plan: []Refer to observation Definitive disposition and diagnosis as appropriate pending reevaluation and review of above. Onset: Today, Sudden Duration: Minutes: Location: Reports: Neck, Chest, Upper Extremity, Left Quality: Reports: Stabbing Severity: Moderate Improves with: Reports: None Worsens with: Reports: None mid chest Pain Score (Numeric/FACES): 4 - Related Data Allergies Allergy/AdvReac Type Severity Reaction Status Date / Time No Known Allergies Allergy Verified 02/13/18 10:41 Home Meds: Home Meds . 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 Musculoskeletal History: Reports: None Neurological History: Reports: None Psychiatric History: Reports: Anxiety Endocrine/Metabolic History: Reports: None Hematologic History: Reports: None Immunologic History: Reports: None Oncologic (Cancer) History: Reports: None Dermatologic History: Reports: None - Infectious Disease History Infectious Disease History: Reports: Chicken Pox - Past Surgical History Female Surgical History: Reports: Section Social & Family History - Family History Family Medical History: Noncontributory - Caffeine Use Caffeine Use: Reports: Coffee ED ROS GENERAL - Review of Systems Review Of Systems: ROS reveals no pertinent complaints other than HPI. ED EXAM, GENERAL - Physical Exam Exam: See Below (see dictation) Course - Vital Signs Last Recorded V/S: Last Vital Signs Temp 36.4 C 02/13/18 10:38 Pulse 91 02/13/18 11:34 Resp 18 02/13/18 11:34 BP 131/82 02/13/18 11:34 Pulse Ox 95 02/13/18 11:34 - Orders/Labs/Meds Orders: Active Orders 24 hr Category Date Time Status Admission Diagnosis [ADT] Stat ADT 02/13/18 12:23 Ordered Patient Status [ADT] Stat ADT 02/13/18 12:24 Ordered Cardiac Monitoring [RC] . DIRECTED Care 02/13/18 10:40 Active EKG Documentation Completion [RC] STAT Care 02/13/18 10:40 Active Oxygen Therapy [RC] ASDIRECTED Care 02/13/18 10:40 Active D-DIMER QUANTITATIVE [COAG] Stat Lab 02/13/18 10:57 Received INR,PT,PROTHROMBIN TIME [COAG] Stat Lab 02/13/18 10:57 Received UA W/MICROSCOPIC [URIN] Stat Lab 02/13/18 12:11 Ordered Sodium Chloride 0.9% [Saline Flush] Med 02/13/18 10:40 Active 10 ml FLUSH ASDIRECTED PRN Sodium Chloride 0.9% [Saline Flush] Med 02/13/18 10:40 Active 2.5 ml FLUSH ASDIRECTED PRN Saline Lock Insert [OM.PC] Stat Oth 02/13/18 10:40 Ordered Medication Orders Sodium Chloride (Saline Flush) 10 ml FLUSH ASDIRECTED PRN PRN Reason: Keep Vein Open Sodium Chloride (Saline Flush) 2.5 ml FLUSH ASDIRECTED PRN PRN Reason: Keep Vein Open Labs: Laboratory Tests 02/13/18 02/13/18 Range/Units 10:57 10:57 WBC 9.01 (4.0-11.0) K/uL RBC 4.62 (4.30-5.90) M/uL Hgb 15.9 (12.0-16.0) g/dL Hct 47.2 H (36.0-46.0) % MCV 102.2 H (80.0-98.0) fL MCH 34.4 H (27.0-32.0) pg MCHC 33.7 (31.0-37.0) g/dL RDW Std Deviation 54.7 (28.0-62.0) fl RDW Coeff of Favio 15 (11.0-15.0) % Plt Count 210 (150-400) K/uL MPV 12.30 H (7.40-12.00) fL Neut % (Auto) 58.9 (48.0-80.0) % Lymph % (Auto) 29.2 (16.0-40.0) % [place] % (Auto) 9.2 (0.0-15.0) % Eos % (Auto) 1.7 (0.0-7.0) % Baso % (Auto) 1.0 (0.0-1.5) % Neut # (Auto) 5.3 (1.4-5.7) K/uL Lymph # (Auto) 2.6 H (0.6-2.4) K/uL [place] # (Auto) 0.8 (0.0-0.8) K/uL Eos # (Auto) 0.2 (0.0-0.7) K/uL Baso # (Auto) 0.1 (0.0-0.1) K/uL Nucleated RBC % 0.0 /100WBC Nucleated RBCs # 0 K/uL Sodium 138 (136-145) mmol/L Potassium 3.6 (3.5-5.1) mmol/L Chloride 104 (98-107) mmol/L Carbon Dioxide 26.5 (21.0-32.0) mmol/L BUN 20 H (7.0-18.0) mg/dL Creatinine 0.8 (0.6-1.0) mg/dL Est Cr Clr Drug Dosing 87.70 mL/min Estimated GFR (MDRD) > 60.0 ml/min Glucose 138 H (74-106) mg/dL Calcium 9.0 (8.5-10.1) mg/dL Total Bilirubin 0.3 (0.2-1.0) mg/dL AST 20 (15-37) IU/L ALT 27 (14-63) IU/L Alkaline Phosphatase 66 (46-116) U/L Troponin I < 0.050 (0.000-0.056) ng/mL Total Protein 7.1 (6.4-8.2) g/dL Albumin 3.7 (3.4-5.0) g/dL Globulin 3.4 (2.0-3.5) g/dL Albumin/Globulin Ratio 1.1 L (1.3-2.8) Amylase 47 (25-115) U/L Lipase 166 (73-393) U/L Meds: Medications Generic Name Dose Route Start Last Admin Trade Name Freq PRN Reason Stop Dose Admin Sodium Chloride 10 ml 02/13/18 10:40 Saline Flush FLUSH ASDIRECTED PRN Keep Vein Open Sodium Chloride 2.5 ml 02/13/18 10:40 Saline Flush FLUSH ASDIRECTED PRN Keep Vein Open Discontinued Medications Generic Name Dose Route Start Last Admin Trade Name Freq PRN Reason Stop Dose Admin Aspirin 324 mg 02/13/18 10:40 02/13/18 11:14 Aspirin PO 02/13/18 10:41 324 mg ONETIME ONE Administration Sodium Chloride 1,000 mls @ 999 mls/hr 02/13/18 10:40 02/13/18 11:15 Normal Saline IV 02/13/18 11:40 999 mls/hr .Bolus ONE Administration Nitroglycerin 0.4 mg 02/13/18 10:40 02/13/18 11:16 Nitrostat SL 02/13/18 10:41 0.4 mg ONETIME ONE Administration Departure - Departure Time of Disposition: 12:26 Disposition: Refer to Observation Condition: Good Clinical Impression: Atypical chest pain Referrals: PCP,None [Primary Care Provider] - Forms: ED Department Discharge - My Orders Last 24 Hours: My Active Orders 02/13/18 10:40 Cardiac Monitoring [RC] . DIRECTED EKG Documentation Completion [RC] STAT Oxygen Therapy [RC] ASDIRECTED Sodium Chloride 0.9% [Saline Flush] 10 ml FLUSH ASDIRECTED PRN Sodium Chloride 0.9% [Saline Flush] 2.5 ml FLUSH ASDIRECTED PRN Saline Lock Insert [OM.PC] Stat 02/13/18 10:57 D-DIMER QUANTITATIVE [COAG] Stat INR,PT,PROTHROMBIN TIME [COAG] Stat 02/13/18 12:11 UA W/MICROSCOPIC [URIN] Stat 02/13/18 12:23 Admission Diagnosis [ADT] Stat 02/13/18 12:24 Patient Status [ADT] Stat - Assessment/Plan Last 24 Hours: My Active Orders 02/13/18 10:40 Cardiac Monitoring [RC] . DIRECTED EKG Documentation Completion [RC] STAT Oxygen Therapy [RC] ASDIRECTED Sodium Chloride 0.9% [Saline Flush] 10 ml FLUSH ASDIRECTED PRN Sodium Chloride 0.9% [Saline Flush] 2.5 ml FLUSH ASDIRECTED PRN Saline Lock Insert [OM.PC] Stat 02/13/18 10:57 D-DIMER QUANTITATIVE [COAG] Stat INR,PT,PROTHROMBIN TIME [COAG] Stat 02/13/18 12:11 UA W/MICROSCOPIC [URIN] Stat 02/13/18 12:23 Admission Diagnosis [ADT] Stat 02/13/18 12:24 Patient Status [ADT] Stat
--- NOTE | 2018-02-13 11:32 | CR ---
EXAMINATION: Portable chest radiograph. HISTORY: Chest pain. FINDINGS: The trachea is midline. The cardiomediastinal silhouette is within normal limits. No pulmonary infilt rates, effusions or pneumothorax. Osseous structures appear unremarkable. IMPRESSION: No acute cardiopulmonary process.
[2018-02-13 12:17] LABS: CHLORIDE,CL 104 mmol/L (98-107); SODIUM,NA 138 mmol/L (136-145)
[2018-02-13] MEDS ORDERED: Ondansetron 4 MG Tab.DIS PO PRN (13:12)
[2018-02-13] MEDS ORDERED: Acetaminophen 325 MG Tab PO PRN (13:12)
--- NOTE | 2018-02-13 13:15 | PCM.HP ---
H&P History of Present Illness - General Date of Service: 02/13/18 Admit Problem/Dx: Admission Diagnosis/Problem Admission Diagnosis/Problem Chest pain Source of Information: Patient History Limitations: Reports: No Limitations - History of Present Illness Initial Comments - Free Text/Narative: This 47 year old female with pmh of alcohol abuse, quit a few months ago, tobacco abuse, hypertriglyceridemia, and pancreatitis secondary to hypertriglyceridemia presented to the ED today with complaints of mid sternal anterior chest pain which radiated to her back and up bilateral neck.She was sitting on the couch playing on her phone when this happened, she had eaten a tuna sandwich approximately 20 minutes prior to pain starting. She describes this pain as dull pressure throughout her chest. She felt short of breath and very scared about the pain. Her significant other was with her when this occurred and he reported she appeared very pale and was nervous so he brought her to the ED. She reports she otherwise has been feeling well at home. No fevers, chills URI or abdominal pain, no urinary symptoms, no black or bloody BMs. She reports she feels bloated most days after having pancreatitis secondary to hypertriglyceridemia. She denies epigastric pain or heart burn. She does have a history of heartburn and occasionally takes Prilosec for this and is not currently feeling like she has heartburn. She reports some CAD in her family on her maternal side, with her mother she is unsure but knowns maternal grandmother had CVA early in life and maternal grandfather have cardiac bypass as well. Paternal side is completely unknown. She reports tobacco use 1 ppd now, no further alcohol use for the past couple months and no recreational drug use. In the ED Hgb15.9, HCT 47, BUN 20, Cr 0.8 Glucose 138, troponin negative, UA negative CXR negative as well. EKG mid chest Pain Score (Numeric/FACES): 4 - Related Data Allergies/Adverse Reactions: Allergies Allergy/AdvReac Type Severity Reaction Status Date / Time No Known Allergies Allergy Verified 02/13/18 10:41 Home Medications: Home Meds . 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 Musculoskeletal History: Reports: None Neurological History: Reports: None Psychiatric History: Reports: Anxiety Endocrine/Metabolic History: Reports: None Hematologic History: Reports: None Immunologic History: Reports: None Oncologic (Cancer) History: Reports: None Dermatologic History: Reports: None - Infectious Disease History Infectious Disease History: Reports: Chicken Pox - Past Surgical History Female Surgical History: Reports: Section Social & Family History - Family History Family Medical History: Noncontributory - Tobacco Use Smoking Status *Q: Current Every Day Smoker Years of Tobacco use: 30 Packs/Tins Daily: 1 - Caffeine Use Caffeine Use: Reports: Coffee - Recreational Drug Use Recreational Drug Use: Yes Drug Use in Last 12 Months: Yes Recreational Drug Type: Reports: Marijuana/Hashish Recreational Drug Use Frequency: Rarely H&P Review of Systems - Review of Systems: Review Of Systems: See Below General: Reports: No Symptoms. Denies: Fever, Chills, Malaise, Weakness HEENT: Reports: No Symptoms. Denies: Headaches, Sinus Congestion, Sore Throat, Vertigo Pulmonary: Reports: Shortness of Breath (with chest pain, no longer having) Cardiovascular: Reports: Chest Pain (no longer having since ED). Denies: Palpitations, Dyspnea on Exertion, Edema, Lightheadedness, Syncope Gastrointestinal: Reports: No Symptoms. Denies: Abdominal Pain, Diarrhea, Nausea, Vomiting Genitourinary: Reports: No Symptoms. Denies: Dysuria, Frequency, Burning Musculoskeletal: Reports: No Symptoms. Denies: Neck Pain Skin: Reports: No Symptoms Psychiatric: Reports: No Symptoms Neurological: Reports: No Symptoms Hematologic/Lymphatic: Reports: No Symptoms Immunologic: Reports: No Symptoms Exam - Exam Exam: See Below - Vital Signs Vital Signs: Last Vital Signs Temp 97.6 F 02/13/18 10:38 Pulse 80 02/13/18 12:59 Resp 18 02/13/18 12:59 BP 137/74 02/13/18 12:59 Pulse Ox 98 02/13/18 12:59 Weight: 77.111 kg - Exam General: Alert, Oriented, Cooperative Neck: Supple, Trachea Midline, 2 Lungs: Clear to Auscultation, Normal Respiratory Effort Cardiovascular: Regular Rate, Regular Rhythm, Other (no current chest pain, no pain to palpation of chest). No: Systolic Murmur GI/Abdominal Exam: Normal Bowel Sounds, Soft, Non-Tender, No Organomegaly, No Distention, No Abnormal Bruit, No Mass, Pelvis Stable. No: Guarding, Rigid Back Exam: Normal Inspection, Full Range of Motion, NT Extremities: Normal Inspection, Normal Range of Motion, Non-Tender, No Pedal Edema, Normal Capillary Refill Neurological: Cranial Nerves Intact, Reflexes Equal Bilateral Neuro Extensive - Mental Status: Alert, Oriented x3 Psychiatric: Alert, Normal Affect, Normal Mood - Patient Data Lab Results Last 24 hrs: Laboratory Results - last 24 hr 02/13/18 02/13/18 02/13/18 Range/Units 10:57 10:57 10:57 WBC 9.01 (4.0-11.0) K/uL RBC 4.62 (4.30-5.90) M/uL Hgb 15.9 (12.0-16.0) g/dL Hct 47.2 H (36.0-46.0) % MCV 102.2 H (80.0-98.0) fL MCH 34.4 H (27.0-32.0) pg MCHC 33.7 (31.0-37.0) g/dL RDW Std Deviation 54.7 (28.0-62.0) fl RDW Coeff of Favio 15 (11.0-15.0) % Plt Count 210 (150-400) K/uL MPV 12.30 H (7.40-12.00) fL Neut % (Auto) 58.9 (48.0-80.0) % Lymph % (Auto) 29.2 (16.0-40.0) % [place] % (Auto) 9.2 (0.0-15.0) % Eos % (Auto) 1.7 (0.0-7.0) % Baso % (Auto) 1.0 (0.0-1.5) % Neut # (Auto) 5.3 (1.4-5.7) K/uL Lymph # (Auto) 2.6 H (0.6-2.4) K/uL [place] # (Auto) 0.8 (0.0-0.8) K/uL Eos # (Auto) 0.2 (0.0-0.7) K/uL Baso # (Auto) 0.1 (0.0-0.1) K/uL Nucleated RBC % 0.0 /100WBC Nucleated RBCs # 0 K/uL INR 1.00 D-Dimer, Quantitative < 0.19 (0.0-0.52) mg/LFEU Sodium 138 (136-145) mmol/L Potassium 3.6 (3.5-5.1) mmol/L Chloride 104 (98-107) mmol/L Carbon Dioxide 26.5 (21.0-32.0) mmol/L BUN 20 H (7.0-18.0) mg/dL Creatinine 0.8 (0.6-1.0) mg/dL Est Cr Clr Drug Dosing 87.70 mL/min Estimated GFR (MDRD) > 60.0 ml/min Glucose 138 H (74-106) mg/dL Calcium 9.0 (8.5-10.1) mg/dL Total Bilirubin 0.3 (0.2-1.0) mg/dL AST 20 (15-37) IU/L ALT 27 (14-63) IU/L Alkaline Phosphatase 66 (46-116) U/L Troponin I < 0.050 (0.000-0.056) ng/mL Total Protein 7.1 (6.4-8.2) g/dL Albumin 3.7 (3.4-5.0) g/dL Globulin 3.4 (2.0-3.5) g/dL Albumin/Globulin Ratio 1.1 L (1.3-2.8) Amylase 47 (25-115) U/L Lipase 166 (73-393) U/L Urine Color Urine Appearance Urine pH (5.0-8.0) Ur Specific [place] (1.001-1.035) Urine Protein (NEGATIVE) mg/dL Urine Glucose (UA) (NEGATIVE) mg/dL Urine Ketones (NEGATIVE) mg/dL Urine Occult Blood (NEGATIVE) Urine Nitrite (NEGATIVE) Urine Bilirubin (NEGATIVE) Urine Urobilinogen (<2.0) EU/dL Ur Leukocyte Esterase (NEGATIVE) Urine RBC (0-2/HPF) Urine WBC (0-5/HPF) Ur Epithelial Cells (NONE-FEW) Amorphous Sediment (NEGATIVE) Urine Bacteria (NEGATIVE) 02/13/18 Range/Units 12:11 WBC (4.0-11.0) K/uL RBC (4.30-5.90) M/uL Hgb (12.0-16.0) g/dL Hct (36.0-46.0) % MCV (80.0-98.0) fL MCH (27.0-32.0) pg MCHC (31.0-37.0) g/dL RDW Std Deviation (28.0-62.0) fl RDW Coeff of Favio (11.0-15.0) % Plt Count (150-400) K/uL MPV (7.40-12.00) fL Neut % (Auto) (48.0-80.0) % Lymph % (Auto) (16.0-40.0) % [place] % (Auto) (0.0-15.0) % Eos % (Auto) (0.0-7.0) % Baso % (Auto) (0.0-1.5) % Neut # (Auto) (1.4-5.7) K/uL Lymph # (Auto) (0.6-2.4) K/uL [place] # (Auto) (0.0-0.8) K/uL Eos # (Auto) (0.0-0.7) K/uL Baso # (Auto) (0.0-0.1) K/uL Nucleated RBC % /100WBC Nucleated RBCs # K/uL INR D-Dimer, Quantitative (0.0-0.52) mg/LFEU Sodium (136-145) mmol/L Potassium (3.5-5.1) mmol/L Chloride (98-107) mmol/L Carbon Dioxide (21.0-32.0) mmol/L BUN (7.0-18.0) mg/dL Creatinine (0.6-1.0) mg/dL Est Cr Clr Drug Dosing mL/min Estimated GFR (MDRD) ml/min Glucose (74-106) mg/dL Calcium (8.5-10.1) mg/dL Total Bilirubin (0.2-1.0) mg/dL AST (15-37) IU/L ALT (14-63) IU/L Alkaline Phosphatase (46-116) U/L Troponin I (0.000-0.056) ng/mL Total Protein (6.4-8.2) g/dL Albumin (3.4-5.0) g/dL Globulin (2.0-3.5) g/dL Albumin/Globulin Ratio (1.3-2.8) Amylase (25-115) U/L Lipase (73-393) U/L Urine Color YELLOW Urine Appearance SLT CLOUDY Urine pH 6.0 (5.0-8.0) Ur Specific [place] 1.020 (1.001-1.035) Urine Protein NEGATIVE (NEGATIVE) mg/dL Urine Glucose (UA) NEGATIVE (NEGATIVE) mg/dL Urine Ketones NEGATIVE (NEGATIVE) mg/dL Urine Occult Blood NEGATIVE (NEGATIVE) Urine Nitrite NEGATIVE (NEGATIVE) Urine Bilirubin NEGATIVE (NEGATIVE) Urine Urobilinogen 0.2 (<2.0) EU/dL Ur Leukocyte Esterase SMALL (NEGATIVE) Urine RBC 0-1 (0-2/HPF) Urine WBC 1-2 (0-5/HPF) Ur Epithelial Cells MODERATE (NONE-FEW) Amorphous Sediment FEW (NEGATIVE) Urine Bacteria FEW (NEGATIVE) Result Diagrams: 02/13/18 10:57 02/13/18 10:57 EKG INTERPRETATION EKG Date: 02/13/18 Rhythm: NSR Rate (Beats/Min): 80 P-Wave: Present QRS: Normal ST-T: Normal QT: Normal *Q Meaningful Use (ADM) - VTE Risk Assess *Q Each Risk Factor Represents 1 Point: Age 41 - 59 years Total Score 1 Point Risk Factors: 1 Each Risk Factor Represents 2 Points: None Total Score 2 Point Risk Factors: 0 Each Risk Factor Represents 3 Points: None Total Score 3 Point Risk Factors: 0 Each Risk Factor Represents 5 Points: None Total Score 5 Point Risk Factors: 0 Venous Thromboembolism Risk Factor Score *Q: 1 - Problem List (1) Atypical chest pain SNOMED Code(s): 308859777 ICD Code: R07.89 - OTHER CHEST PAIN Status: Acute Current Visit: Yes (2) Hypertriglyceridemia SNOMED Code(s): 621212479 ICD Code: E78.1 - PURE HYPERGLYCERIDEMIA Status: Chronic Current Visit: Yes (3) Pancreatitis SNOMED Code(s): 52310964 ICD Code: K85.90 - ACUTE PANCREATITIS WITHOUT NECROSIS OR INFECTION, UNSP Status: Chronic Current Visit: Yes Qualifiers: Chronicity: chronic Pancreatitis type: other Qualified Code(s): K86.1 - Other chronic pancreatitis (4) GERD (gastroesophageal reflux disease) SNOMED Code(s): 292791178 ICD Code: K21.9 - GASTRO-ESOPHAGEAL REFLUX DISEASE WITHOUT ESOPHAGITIS Status: Chronic Current Visit: Yes Qualifiers: Esophagitis presence: without esophagitis Qualified Code(s): K21.9 - Gastro -esophageal reflux disease without esophagitis (5) Tobacco abuse SNOMED Code(s): 070576910 ICD Code: Z72.0 - TOBACCO USE Status: Chronic Current Visit: Yes (6) History of alcohol abuse SNOMED Code(s): 693066212 ICD Code: Z87.898 - PERSONAL HISTORY OF OTHER SPECIFIED CONDITIONS Status: Chronic Current Visit: Yes Problem List Initiated/Reviewed/Updated: Yes Orders Last 24hrs: Active Orders 24 hr Category Date Time Status Admission Diagnosis [ADT] Stat ADT 02/13/18 12:23 Ordered Patient Status [ADT] Stat ADT 02/13/18 12:24 Active Cardiac Monitoring [RC] . DIRECTED Care 02/13/18 10:40 Active EKG Documentation Completion [RC] STAT Care 02/13/18 10:40 Active Intake and Output [RC] QSHIFT Care 02/13/18 13:12 Ordered Oxygen Therapy [RC] ASDIRECTED Care 02/13/18 10:40 Active Oxygen Therapy [RC] PRN Care 02/13/18 13:12 Ordered Telemetry Monitoring [Cardiac Monitoring] [RC] . Care 02/13/18 13:12 Ordered DIRECTED Up ad Mi [RC] ASDIRECTED Care 02/13/18 13:12 Ordered VTE/DVT Education [RC] PER UNIT ROUTINE Care 02/13/18 13:12 Ordered Vital Signs [RC] Q4H Care 02/13/18 13:12 Ordered Heart Healthy Diet [DIET] Diet 02/13/18 Lunch Ordered GLYCOSYLATED HEMOGLOBIN,HGBA1C [CHEM] Routine Lab 02/13/18 13:12 Ordered LIPID PANEL [CHEM] Routine Lab 02/14/18 05:00 Ordered TROPONIN I [CHEM] Q6H Lab 02/13/18 17:00 Ordered TROPONIN I [CHEM] Q6H Lab 02/13/18 23:00 Ordered UA W/MICROSCOPIC [URIN] Stat Lab 02/13/18 12:11 Ordered Acetaminophen [Tylenol] Med 02/13/18 13:12 Ordered 650 mg PO Q4H PRN Ondansetron [Zofran ODT] Med 02/13/18 13:12 Ordered 4 mg PO Q4H PRN Sodium Chloride 0.9% [Saline Flush] Med 02/13/18 10:40 Active 10 ml FLUSH ASDIRECTED PRN Sodium Chloride 0.9% [Saline Flush] Med 02/13/18 10:40 Active 2.5 ml FLUSH ASDIRECTED PRN Saline Lock Insert [OM.PC] Stat Ot 02/13/18 10:40 Ordered Sequential Compression Device [OM.PC] Per Unit Routine Oth 02/13/18 13:13 Ordered Resuscitation Status Routine Resus Stat 02/13/18 13:12 Ordered Medication Orders Acetaminophen (Tylenol) 650 mg PO Q4H PRN PRN Reason: Pain (mild 1-3) Ondansetron HCl (Zofran Odt) 4 mg PO Q4H PRN PRN Reason: nausea, able to take PO Sodium Chloride (Saline Flush) 10 ml FLUSH ASDIRECTED PRN PRN Reason: Keep Vein Open Sodium Chloride (Saline Flush) 2.5 ml FLUSH ASDIRECTED PRN PRN Reason: Keep Vein Open Assessment/Plan Comment:: This 47 year old female admitted with chest pain rule out ACS 1. Chest pain: Will trend troponins and monitor on Telemetry. Obtian lipid panel and A1c. Will give GI cocktail and Protonix now due to Hx GERD. Has hx of hypertriglyceridemia and has been off medication for 1 year. Has not followed with PCP. Will schedule outpatient stress test. 2. Hx Hypertriglercidemia: Check lipid panel, restart Gemfibrozil 600 mg BID. Lipase normal, no epigastric pain. Tolerating diet ok, no signs of acute pancreatitis. 3. Tobacco abuse: Will not place nicotine replacement due to ruling out ACS. Discussed tobacco cessation for greater than 10 minutes with patient and significant other. VTE prophylaxis: SCDs Dispo: 1 day
[2018-02-13] MEDS ORDERED: Pantoprazole 40 MG Vial IVPUSH ONE (13:55)
[2018-02-13] MEDS ORDERED: Alum Hydrox/Mag Hydrox/Simeth 15 ML, Lidocaine 2% 5 ML PO ONE ×2 (13:55)
[2018-02-13] MEDS: Gemfibrozil 600 MG Tab PO SCH (18:00)
[2018-02-14] MEDS: Gemfibrozil 600 MG Tab PO SCH (07:15)
[2018-02-14 08:51] VITALS: BP 139/84
[2018-02-14] MEDS ORDERED: Aspirin 81 MG Tab.Chew PO SCH (09:00)
--- NOTE | 2018-02-14 09:02 | PCM.DCSUM1 ---
Discharge Summary - Hospital Course Brief History: This 47 year old female with pmh of alcohol abuse, quit a few months ago, tobacco abuse, hypertriglyceridemia, and pancreatitis secondary to hypertriglyceridemia presented to the ED today with complaints of mid sternal anterior chest pain which radiated to her back and up bilateral neck.She was sitting on the couch playing on her phone when this happened, she had eaten a tuna sandwich approximately 20 minutes prior to pain starting. She describes this pain as dull pressure throughout her chest. She felt short of breath and very scared about the pain. Her significant other was with her when this occurred and he reported she appeared very pale and was nervous so he brought her to the ED. She reports she otherwise has been feeling well at home. No fevers, chills URI or abdominal pain, no urinary symptoms, no black or bloody BMs. She reports she feels bloated most days after having pancreatitis secondary to hypertriglyceridemia. She denies epigastric pain or heart burn. She does have a history of heartburn and occasionally takes Prilosec for this and is not currently feeling like she has heartburn. She reports some CAD in her family on her maternal side, with her mother she is unsure but knowns maternal grandmother had CVA early in life and maternal grandfather have cardiac bypass as well. Paternal side is completely unknown. She reports tobacco use 1 ppd now, no further alcohol use for the past couple months and no recreational drug use. In the ED Hgb15.9, HCT 47, BUN 20, Cr 0.8 Glucose 138, troponin negative, UA negative CXR negative as well. EKG SR with no acute ischemic changes. She was admitted for chest pain rule out ACS. - Discharge Data Discharge Date: 02/14/18 Discharge Disposition: Home, Self-Care 01 Condition: Good - Discharge Diagnosis/Problem(s) (1) Atypical chest pain SNOMED Code(s): 628623532 ICD Code: R07.89 - OTHER CHEST PAIN Status: Acute Current Visit: Yes (2) Hypertriglyceridemia SNOMED Code(s): 025688395 ICD Code: E78.1 - PURE HYPERGLYCERIDEMIA Status: Chronic Current Visit: Yes (3) Pancreatitis SNOMED Code(s): 44569724 ICD Code: K85.90 - ACUTE PANCREATITIS WITHOUT NECROSIS OR INFECTION, UNSP Status: Chronic Current Visit: Yes Qualifiers: Chronicity: chronic Pancreatitis type: other Qualified Code(s): K86.1 - Other chronic pancreatitis (4) GERD (gastroesophageal reflux disease) SNOMED Code(s): 168261210 ICD Code: K21.9 - GASTRO-ESOPHAGEAL REFLUX DISEASE WITHOUT ESOPHAGITIS Status: Chronic Current Visit: Yes Qualifiers: Esophagitis presence: without esophagitis Qualified Code(s): K21.9 - Gastro -esophageal reflux disease without esophagitis (5) Tobacco abuse SNOMED Code(s): 394179776 ICD Code: Z72.0 - TOBACCO USE Status: Chronic Current Visit: Yes (6) History of alcohol abuse SNOMED Code(s): 189987091 ICD Code: Z87.898 - PERSONAL HISTORY OF OTHER SPECIFIED CONDITIONS Status: Chronic Current Visit: Yes - Patient Instructions Diet: Heart Healthy Diet Activity: No Strenuous Activities (until after stress test), Rest and Relax Today Showering/Bathing: January Shower Notify Provider of: Fever, Increased Pain, Swelling and Redness, Drainage, Nausea and/or Vomiting - Discharge Plan Prescriptions/Med Rec: Gemfibrozil [Lopid] 600 mg PO BIDAC #60 tablet Pantoprazole Sodium [Protonix] 40 mg PO DAILY #30 tablet. Home Medications: Home Meds Aspirin 81 mg PO DAILY tab.chew 02/14/18 [Rx] Gemfibrozil [Lopid] 600 mg PO BIDAC #60 tablet 02/14/18 [Rx] Pantoprazole Sodium [Protonix] 40 mg PO DAILY #30 tablet. 02/14/18 [Rx] Patient Handouts: Nonspecific Chest Pain, [id number], Pantoprazole tablets, Gemfibrozil tablets Referrals: Aldair Rosenthal PA [Physician [employer]] - 02/21/18 3:15 pm Addi Tamayo MD [Physician] - 02/23/18 2:30 pm - Discharge Summary/Plan Comment DC Time >30 min.: No Discharge Summary/Plan Comment: Discharge Diagnoses: Atypical Chest pain Hypertriglyceridemia GERD Hx hypertriglyceridemia induced pancreatitis Tobacco abuse Hx ETOH abuse- currently sober. Laury was admitted and monitored overnight for atypical chest pain. EKG and telemetry remained SR with no ischemic changes. She had no reocurrence of chest pain. Troponins negative x 3. She was treated with GI cocktail and Protonix upon arrival the M/S floor. Lipi panel obtained which noted elevated triglycerides, 421. She has been out of Gemfibrozil for 1 year. Total cholesterol 399, LDL unable to be calculated due to triglycerides and HDL 59. A1c 5.9. We discussed for greater than 10 minutes the importance of stopping tobacco use, she knows she needs to but currently isn't quite ready to make this commitment. She recently has become sober and stopped drinking alcohol, which she drank quite heavily for many years. She reports her next step is to stop smoking. She will be discharged home today. ACS ruled out. Due to risk factors, I will arrange for outpatient stress test and follow up with cardiology. She will also be scheduled with PCP to establish care as well. I will provide her with Gemfibrozol 600 mg BID as well as Protonix 40 mg daily x 1 month. She was encouraged to return to ED or clinic if concerns should arise. - General Info Date of Service: 02/14/18 Admission Dx/Problem (Free Text: Admission Diagnosis/Problem Admission Diagnosis/Problem Chest pain Subjective Update: Feeling good today. No further chest since before arrival to ED. No shortness of breath or abdominal pain. No other concerns. Ready for discharge home. Functional Status: Reports: Pain Controlled, Tolerating Diet, Ambulating, Urinating - Review of Systems General: Reports: No Symptoms. Denies: Fever, Weakness, Fatigue, Malaise HEENT: Reports: No Symptoms. Denies: Headaches, Sore Throat, Rhinitis, Visual Changes Pulmonary: Reports: No Symptoms. Denies: Shortness of Breath Cardiovascular: Reports: No Symptoms. Denies: Chest Pain Gastrointestinal: Reports: No Symptoms. Denies: Abdominal Pain, Nausea, Vomiting Genitourinary: Reports: No Symptoms. Denies: Dysuria, Frequency Musculoskeletal: Reports: No Symptoms Skin: Reports: No Symptoms Psychiatric: Reports: No Symptoms - Patient Data Vitals - Most Recent: Last Vital Signs Temp 97.2 F 02/14/18 08:00 Pulse 84 02/14/18 08:00 Resp 20 02/14/18 08:00 BP 139/84 02/14/18 08:00 Pulse Ox 98 02/14/18 08:00 Weight - Most Recent: 77.111 kg I&O - Last 24 hours: Intake & Output 02/13/18 02/14/18 02/14/18 22:59 06:59 14:59 Intake Total 400 440 Output Total 200 1700 Balance 200 -1260 Lab Results - Last 24 hrs: Laboratory Results - last 24 hr 02/13/18 02/13/18 02/13/18 Range/Units 10:57 10:57 10:57 WBC 9.01 (4.0-11.0) K/uL RBC 4.62 (4.30-5.90) M/uL Hgb 15.9 (12.0-16.0) g/dL Hct 47.2 H (36.0-46.0) % MCV 102.2 H (80.0-98.0) fL MCH 34.4 H (27.0-32.0) pg MCHC 33.7 (31.0-37.0) g/dL RDW Std Deviation 54.7 (28.0-62.0) fl RDW Coeff of Favio 15 (11.0-15.0) % Plt Count 210 (150-400) K/uL MPV 12.30 H (7.40-12.00) fL Neut % (Auto) 58.9 (48.0-80.0) % Lymph % (Auto) 29.2 (16.0-40.0) % [place] % (Auto) 9.2 (0.0-15.0) % Eos % (Auto) 1.7 (0.0-7.0) % Baso % (Auto) 1.0 (0.0-1.5) % Neut # (Auto) 5.3 (1.4-5.7) K/uL Lymph # (Auto) 2.6 H (0.6-2.4) K/uL [place] # (Auto) 0.8 (0.0-0.8) K/uL Eos # (Auto) 0.2 (0.0-0.7) K/uL Baso # (Auto) 0.1 (0.0-0.1) K/uL Nucleated RBC % 0.0 /100WBC Nucleated RBCs # 0 K/uL INR 1.00 D-Dimer, Quantitative < 0.19 (0.0-0.52) mg/LFEU Sodium 138 (136-145) mmol/L Potassium 3.6 (3.5-5.1) mmol/L Chloride 104 (98-107) mmol/L Carbon Dioxide 26.5 (21.0-32.0) mmol/L BUN 20 H (7.0-18.0) mg/dL Creatinine 0.8 (0.6-1.0) mg/dL Est Cr Clr Drug Dosing 87.70 mL/min Estimated GFR (MDRD) > 60.0 ml/min Glucose 138 H (74-106) mg/dL Hemoglobin A1c (4.5-6.2) % Calcium 9.0 (8.5-10.1) mg/dL Total Bilirubin 0.3 (0.2-1.0) mg/dL AST 20 (15-37) IU/L ALT 27 (14-63) IU/L Alkaline Phosphatase 66 (46-116) U/L Troponin I < 0.050 (0.000-0.056) ng/mL Total Protein 7.1 (6.4-8.2) g/dL Albumin 3.7 (3.4-5.0) g/dL Globulin 3.4 (2.0-3.5) g/dL Albumin/Globulin Ratio 1.1 L (1.3-2.8) Triglycerides (0-200) mg/dL Cholesterol (50-200) mg/dL VLDL Cholesterol (5-55) mg/dL HDL Cholesterol (40-60) mg/dL Cholesterol/HDL Ratio (3.3-6.0) Amylase 47 (25-115) U/L Lipase 166 (73-393) U/L Urine Color Urine Appearance Urine pH (5.0-8.0) Ur Specific [place] (1.001-1.035) Urine Protein (NEGATIVE) mg/dL Urine Glucose (UA) (NEGATIVE) mg/dL Urine Ketones (NEGATIVE) mg/dL Urine Occult Blood (NEGATIVE) Urine Nitrite (NEGATIVE) Urine Bilirubin (NEGATIVE) Urine Urobilinogen (<2.0) EU/dL Ur Leukocyte Esterase (NEGATIVE) Urine RBC (0-2/HPF) Urine WBC (0-5/HPF) Ur Epithelial Cells (NONE-FEW) Amorphous Sediment (NEGATIVE) Urine Bacteria (NEGATIVE) 02/13/18 02/13/18 02/13/18 Range/Units 10:57 12:11 13:12 WBC (4.0-11.0) K/uL RBC (4.30-5.90) M/uL Hgb (12.0-16.0) g/dL Hct (36.0-46.0) % MCV (80.0-98.0) fL MCH (27.0-32.0) pg MCHC (31.0-37.0) g/dL RDW Std Deviation (28.0-62.0) fl RDW Coeff of Favio (11.0-15.0) % Plt Count (150-400) K/uL MPV (7.40-12.00) fL Neut % (Auto) (48.0-80.0) % Lymph % (Auto) (16.0-40.0) % [place] % (Auto) (0.0-15.0) % Eos % (Auto) (0.0-7.0) % Baso % (Auto) (0.0-1.5) % Neut # (Auto) (1.4-5.7) K/uL Lymph # (Auto) (0.6-2.4) K/uL [place] # (Auto) (0.0-0.8) K/uL Eos # (Auto) (0.0-0.7) K/uL Baso # (Auto) (0.0-0.1) K/uL Nucleated RBC % /100WBC Nucleated RBCs # K/uL INR D-Dimer, Quantitative (0.0-0.52) mg/LFEU Sodium (136-145) mmol/L Potassium (3.5-5.1) mmol/L Chloride (98-107) mmol/L Carbon Dioxide (21.0-32.0) mmol/L BUN (7.0-18.0) mg/dL Creatinine (0.6-1.0) mg/dL Est Cr Clr Drug Dosing mL/min Estimated GFR (MDRD) ml/min Glucose (74-106) mg/dL Hemoglobin A1c 5.9 (4.5-6.2) % Calcium (8.5-10.1) mg/dL Total Bilirubin (0.2-1.0) mg/dL AST (15-37) IU/L ALT (14-63) IU/L Alkaline Phosphatase (46-116) U/L Troponin I (0.000-0.056) ng/mL Total Protein (6.4-8.2) g/dL Albumin (3.4-5.0) g/dL Globulin (2.0-3.5) g/dL Albumin/Globulin Ratio (1.3-2.8) Triglycerides 421 H (0-200) mg/dL Cholesterol 399 H (50-200) mg/dL VLDL Cholesterol 84 H (5-55) mg/dL HDL Cholesterol 59 (40-60) mg/dL Cholesterol/HDL Ratio 6.8 H (3.3-6.0) Amylase (25-115) U/L Lipase (73-393) U/L Urine Color YELLOW Urine Appearance SLT CLOUDY Urine pH 6.0 (5.0-8.0) Ur Specific [place] 1.020 (1.001-1.035) Urine Protein NEGATIVE (NEGATIVE) mg/dL Urine Glucose (UA) NEGATIVE (NEGATIVE) mg/dL Urine Ketones NEGATIVE (NEGATIVE) mg/dL Urine Occult Blood NEGATIVE (NEGATIVE) Urine Nitrite NEGATIVE (NEGATIVE) Urine Bilirubin NEGATIVE (NEGATIVE) Urine Urobilinogen 0.2 (<2.0) EU/dL Ur Leukocyte Esterase SMALL (NEGATIVE) Urine RBC 0-1 (0-2/HPF) Urine WBC 1-2 (0-5/HPF) Ur Epithelial Cells MODERATE (NONE-FEW) Amorphous Sediment FEW (NEGATIVE) Urine Bacteria FEW (NEGATIVE) 02/13/18 02/13/18 Range/Units 17:05 22:52 WBC (4.0-11.0) K/uL RBC (4.30-5.90) M/uL Hgb (12.0-16.0) g/dL Hct (36.0-46.0) % MCV (80.0-98.0) fL MCH (27.0-32.0) pg MCHC (31.0-37.0) g/dL RDW Std Deviation (28.0-62.0) fl RDW Coeff of Favio (11.0-15.0) % Plt Count (150-400) K/uL MPV (7.40-12.00) fL Neut % (Auto) (48.0-80.0) % Lymph % (Auto) (16.0-40.0) % [place] % (Auto) (0.0-15.0) % Eos % (Auto) (0.0-7.0) % Baso % (Auto) (0.0-1.5) % Neut # (Auto) (1.4-5.7) K/uL Lymph # (Auto) (0.6-2.4) K/uL [place] # (Auto) (0.0-0.8) K/uL Eos # (Auto) (0.0-0.7) K/uL Baso # (Auto) (0.0-0.1) K/uL Nucleated RBC % /100WBC Nucleated RBCs # K/uL INR D-Dimer, Quantitative (0.0-0.52) mg/LFEU Sodium (136-145) mmol/L Potassium (3.5-5.1) mmol/L Chloride (98-107) mmol/L Carbon Dioxide (21.0-32.0) mmol/L BUN (7.0-18.0) mg/dL Creatinine (0.6-1.0) mg/dL Est Cr Clr Drug Dosing mL/min Estimated GFR (MDRD) ml/min Glucose (74-106) mg/dL Hemoglobin A1c (4.5-6.2) % Calcium (8.5-10.1) mg/dL Total Bilirubin (0.2-1.0) mg/dL AST (15-37) IU/L ALT (14-63) IU/L Alkaline Phosphatase (46-116) U/L Troponin I < 0.050 < 0.050 (0.000-0.056) ng/mL Total Protein (6.4-8.2) g/dL Albumin (3.4-5.0) g/dL Globulin (2.0-3.5) g/dL Albumin/Globulin Ratio (1.3-2.8) Triglycerides (0-200) mg/dL Cholesterol (50-200) mg/dL VLDL Cholesterol (5-55) mg/dL HDL Cholesterol (40-60) mg/dL Cholesterol/HDL Ratio (3.3-6.0) Amylase (25-115) U/L Lipase (73-393) U/L Urine Color Urine Appearance Urine pH (5.0-8.0) Ur Specific [place] (1.001-1.035) Urine Protein (NEGATIVE) mg/dL Urine Glucose (UA) (NEGATIVE) mg/dL Urine Ketones (NEGATIVE) mg/dL Urine Occult Blood (NEGATIVE) Urine Nitrite (NEGATIVE) Urine Bilirubin (NEGATIVE) Urine Urobilinogen (<2.0) EU/dL Ur Leukocyte Esterase (NEGATIVE) Urine RBC (0-2/HPF) Urine WBC (0-5/HPF) Ur Epithelial Cells (NONE-FEW) Amorphous Sediment (NEGATIVE) Urine Bacteria (NEGATIVE) Med Orders - Current: Current Medications Acetaminophen (Tylenol) 650 mg PO Q4H PRN PRN Reason: Pain (mild 1-3) Last Admin: 02/14/18 07:18 Dose: 650 mg Aspirin (Aspirin) 81 mg PO DAILY [facility] Last Admin: 02/14/18 08:18 Dose: 81 mg Gemfibrozil (Lopid) 600 mg PO BIDAC [facility] Last Admin: 02/14/18 07:15 Dose: 600 mg Ondansetron HCl (Zofran Odt) 4 mg PO Q4H PRN PRN Reason: nausea, able to take PO Sodium Chloride (Saline Flush) 10 ml FLUSH ASDIRECTED PRN PRN Reason: Keep Vein Open Sodium Chloride (Saline Flush) 2.5 ml FLUSH ASDIRECTED PRN PRN Reason: Keep Vein Open Discontinued Medications Aspirin (Aspirin) 324 mg PO ONETIME ONE Stop: 02/13/18 10:41 Last Admin: 02/13/18 11:14 Dose: 324 mg Al Hydroxide/Mg Hydroxide 15 (ml/ Lidocaine HCl 5 ml) 0 ml PO ONETIME ONE Stop: 02/13/18 13:56 Last Admin: 02/13/18 14:21 Dose: 5 each Sodium Chloride (Normal Saline) 1,000 mls @ 999 mls/hr IV .Bolus ONE Stop: 02/13/18 11:40 Last Admin: 02/13/18 11:15 Dose: 999 mls/hr Nitroglycerin (Nitrostat) 0.4 mg SL ONETIME ONE Stop: 02/13/18 10:41 Last Admin: 02/13/18 11:16 Dose: 0.4 mg Pantoprazole Sodium (Protonix Iv) 40 mg IVPUSH NOW ONE Stop: 02/13/18 13:56 Last Admin: 02/13/18 14:21 Dose: 40 mg - Exam General: Reports: Alert, Oriented, Cooperative, No Acute Distress Neck: Reports: Supple Lungs: Reports: Clear to Auscultation, Normal Respiratory Effort Cardiovascular: Reports: Regular Rate, Regular Rhythm GI/Abdominal Exam: Normal Bowel Sounds, Soft, Non-Tender, No Organomegaly, No Distention, No Abnormal Bruit, No Mass, Pelvis Stable Back Exam: Reports: Normal Inspection, Full Range of Motion Extremities: Normal Inspection, Normal Range of Motion, Non-Tender, No Pedal Edema, Normal Capillary Refill Neurological: Reports: No New Focal Deficit Psy/Mental Status: Reports: Alert, Normal Affect, Normal Mood
== END 2018-02-14 10:05 | disposition home or self-care (01) ==
LOC: MW.ED 10:37 → MW.MS 12:58
PROVIDERS: ADMIT Internal Medicine; ATTEND Internal Medicine
DX: R07.89 Other chest pain (principal); E78.1 Pure hyperglyceridemia; K86.1 Other chronic pancreatitis; K21.9 Gastro-esophageal reflux disease without esophagitis; J44.9 Chronic obstructive pulmonary disease, unspecified; F41.9 Anxiety disorder, unspecified; F10.11 Alcohol abuse, in remission; F17.210 Nicotine dependence, cigarettes, uncomplicated
CPT/HCPCS: 36415; 71045; 80053; 80061; 81001; 82150; 83036; 83690; 84484; 85025; 85379; 85610; 93005; 99285; A9270; C9113; J7040

== ENCOUNTER 2020-04-20 10:10 | Emergency (ER) | payer OTHER ==
[2020-04-20 10:28] VITALS: BP 152/95; PULSE 104
[2020-04-20] MEDS ORDERED: Sodium Chloride 0.9% 1,000 ML IV ONE (10:30)
[2020-04-20] MEDS ORDERED: Ketorolac 30 MG/ML SDV IVPUSH ONE (10:30)
--- NOTE | 2020-04-20 10:34 | EDM.PDOC ---
ED HPI GENERAL MEDICAL PROBLEM - General Chief Complaint: Headache Stated Complaint: HEADACHE Time Seen by Provider: 04/20/20 10:12 Source of Information: Reports: Patient History Limitations: Reports: No Limitations - History of Present Illness INITIAL COMMENTS - FREE TEXT/NARRATIVE: HISTORY AND PHYSICAL: History of present illness: Patient is a 49-year-old female who presents to the emergency room with complaints of generalized body aches, extreme fatigue and generally feeling unwell. She states over the past few days she has had pain in her head, neck and upper shoulders that is led to generalized body aches. She has been getting plenty of rest but feels extremely fatigued when performing routine ADLs. Patient denies any fever, chills, headache, change in vision, syncope or near syncope. Denies any chest pain, shortness of breath or cough. Denies any abdominal pain, nausea, vomiting, diarrhea, constipation or dysuria. Has not noted any blood in urine or stool. Patient has been eating and drinking appropriately. Denies any drug use but does state that she routinely drinks alcohol, "probably more than I should". Review of systems: As per history of present illness and below otherwise all systems reviewed and negative. Past medical history: As per history of present illness and as reviewed below otherwise noncontributory. Surgical history: As per history of present illness and as reviewed below otherwise noncontributory. Social history: See social history for further information Family history: As per history of present illness and as reviewed below otherwise noncontributory. Physical exam: General: Well-developed and well-nourished 49-year-old female. Alert and oriented. Nontoxic-appearing and in no acute distress. HEENT: Atraumatic, normocephalic, pupils equal and reactive bilaterally, negative for conjunctival pallor or scleral icterus, mucous membranes dry/tacky, TMs normal bilaterally, throat mentis without exudate, neck supple, nontender, trachea midline. No drooling or trismus noted. No meningeal signs -no nuchal rigidity. No hot potato voice noted. Lungs: Clear to auscultation, breath sounds equal bilaterally, chest nontender. Heart: S1S2, regular rate and rhythm without overt murmur Abdomen: Soft, nondistended, nontender. Negative for masses or hepatosplenomegaly. Negative for costovertebral tenderness. Skin: Intact, warm, dry. No lesions or rashes noted. Extremities: Atraumatic, moves all extremities per self without difficulty or deficits, negative for cords or calf pain. Neurovascular unremarkable. Neuro: Awake, alert, oriented. Cranial nerves II through XII unremarkable. Cerebellum unremarkable. Motor and sensory unremarkable throughout. Exam nonfocal. Notes: Lab work is unremarkable. Patient's vital signs remained stable. She does feel improved after the fluids and Toradol. We discussed signs and symptoms that would prompt here to return to the emergency room. The need for follow-up and supportive care measures were reviewed and discussed. Voices understanding and is agreeable to plan of care. Denies any further questions or concerns at this time. Diagnostics: CBC, CMP, lipase, UA, COVID-19, strep screening, mono Therapeutics: IV fluid, Toradol Prescription: None Impression: Viral illness Plan: 1. Your lab work today was normal (CBC, CMP, Strep Screening, COVID-19, mono, and urinalysis). Please use Tylenol and/or Ibuprofen as needed for pain and fever management. 2. Get plenty of Rest. Encourage fluids to prevent dehydration. 3. Please follow up with your primary care provider. Return to the ED as needed as discussed. Definitive disposition and diagnosis as appropriate pending reevaluation and review of above. head Pain Score (Numeric/FACES): 5 - Related Data Allergies Allergy/AdvReac Type Severity Reaction Status Date / Time No Known Allergies Allergy Verified 04/20/20 10:23 Home Meds: Home Meds . [No Known Home Meds] 04/20/20 [History] Past Medical History HEENT History: Reports: None Cardiovascular History: Reports: High Cholesterol Other Cardiovascular History: High Trigycerides Respiratory History: Reports: COPD Gastrointestinal History: Reports: None Genitourinary History: Reports: None SINGLE END SEWER History: Reports: Other SINGLE END SEWER History: CSx1 Musculoskeletal History: Reports: None Neurological History: Reports: None Psychiatric History: Reports: Anxiety Endocrine/Metabolic History: Reports: None Hematologic History: Reports: None Immunologic History: Reports: None Oncologic (Cancer) History: Reports: None Dermatologic History: Reports: None - Infectious Disease History Infectious Disease History: Reports: None - Past Surgical History Female Surgical History: Reports: Section Social & Family History - Family History Family Medical History: Noncontributory - Tobacco Use Smoking Status *Q: Current Every Day Smoker Years of Tobacco use: 35 Packs/Tins Daily: 0.5 - Caffeine Use Caffeine Use: Reports: Coffee - Recreational Drug Use Recreational Drug Use: Yes Recreational Drug Type: Reports: Marijuana/Hashish ED ROS GENERAL - Review of Systems Review Of Systems: Comprehensive ROS is negative, except as noted in HPI. - Physical Exam Exam: See Below (See dictation) Course - Vital Signs Last Recorded V/S: Last Vital Signs Temp 96.8 F L 04/20/20 10:24 Pulse 104 H 04/20/20 10:24 Resp 16 04/20/20 10:24 BP 152/95 H 04/20/20 10:24 Pulse Ox 96 04/20/20 10:24 - Orders/Labs/Meds Orders: Active Orders 24 hr Category Date Time Status CULTURE STREP A CONFIRMATION [] Stat Lab 04/20/20 10:40 Results STREP SCRN A RAPID W CULT CONF [] Stat Lab 04/20/20 10:40 Results Labs: Laboratory Tests 04/20/20 04/20/20 04/20/20 Range/Units 10:40 10:40 10:40 WBC 11.91 H (4.0-11.0) K/uL RBC 4.58 (4.30-5.90) M/uL Hgb 15.6 (12.0-16.0) g/dL Hct 47.2 H (36.0-46.0) % MCV 103.1 H (80.0-98.0) fL MCH 34.1 H (27.0-32.0) pg MCHC 33.1 (31.0-37.0) g/dL RDW Std Deviation 47.5 (28.0-62.0) fl RDW Coeff of Favio 13 (11.0-15.0) % Plt Count 266 (150-400) K/uL MPV 10.50 (7.40-12.00) fL Neut % (Auto) 60.2 (48.0-80.0) % Lymph % (Auto) 31.4 (16.0-40.0) % [place] % (Auto) 6.1 (0.0-15.0) % Eos % (Auto) 1.7 (0.0-7.0) % Baso % (Auto) 0.6 (0.0-1.5) % Neut # (Auto) 7.2 H (1.4-5.7) K/uL Lymph # (Auto) 3.7 H (0.6-2.4) K/uL [place] # (Auto) 0.7 (0.0-0.8) K/uL Eos # (Auto) 0.2 (0.0-0.7) K/uL Baso # (Auto) 0.1 (0.0-0.1) K/uL Nucleated RBC % 0.0 /100WBC Nucleated RBCs # 0 K/uL Sodium 142 (136-145) mmol/L Potassium 3.7 (3.5-5.1) mmol/L Chloride 103 (98-107) mmol/L Carbon Dioxide 28.9 (21.0-32.0) mmol/L BUN 22 H (7.0-18.0) mg/dL Creatinine 0.7 (0.6-1.0) mg/dL Est Cr Clr Drug Dosing 98.07 mL/min Estimated GFR (MDRD) > 60.0 ml/min Glucose 94 (74-106) mg/dL Calcium 8.4 L (8.5-10.1) mg/dL Total Bilirubin 0.2 (0.2-1.0) mg/dL AST 20 (15-37) IU/L ALT 21 (14-63) IU/L Alkaline Phosphatase 73 (46-116) U/L Total Protein 7.6 (6.4-8.2) g/dL Albumin 4.1 (3.4-5.0) g/dL Globulin 3.5 (2.6-4.0) g/dL Albumin/Globulin Ratio 1.2 (0.9-1.6) Lipase 182 (73-393) U/L Urine Color Urine Appearance Urine pH (5.0-8.0) Ur Specific [place] (1.001-1.035) Urine Protein (NEGATIVE) mg/dL Urine Glucose (UA) (NEGATIVE) mg/dL Urine Ketones (NEGATIVE) mg/dL Urine Occult Blood (NEGATIVE) Urine Nitrite (NEGATIVE) Urine Bilirubin (NEGATIVE) Urine Urobilinogen (<2.0) EU/dL Ur Leukocyte Esterase (NEGATIVE) COVID-19 (FORTINO) (NEGATIVE) Monoscreen NEGATIVE (NEG) 04/20/20 04/20/20 Range/Units 10:40 11:46 WBC (4.0-11.0) K/uL RBC (4.30-5.90) M/uL Hgb (12.0-16.0) g/dL Hct (36.0-46.0) % MCV (80.0-98.0) fL MCH (27.0-32.0) pg MCHC (31.0-37.0) g/dL RDW Std Deviation (28.0-62.0) fl RDW Coeff of Favio (11.0-15.0) % Plt Count (150-400) K/uL MPV (7.40-12.00) fL Neut % (Auto) (48.0-80.0) % Lymph % (Auto) (16.0-40.0) % [place] % (Auto) (0.0-15.0) % Eos % (Auto) (0.0-7.0) % Baso % (Auto) (0.0-1.5) % Neut # (Auto) (1.4-5.7) K/uL Lymph # (Auto) (0.6-2.4) K/uL [place] # (Auto) (0.0-0.8) K/uL Eos # (Auto) (0.0-0.7) K/uL Baso # (Auto) (0.0-0.1) K/uL Nucleated RBC % /100WBC Nucleated RBCs # K/uL Sodium (136-145) mmol/L Potassium (3.5-5.1) mmol/L Chloride (98-107) mmol/L Carbon Dioxide (21.0-32.0) mmol/L BUN (7.0-18.0) mg/dL Creatinine (0.6-1.0) mg/dL Est Cr Clr Drug Dosing mL/min Estimated GFR (MDRD) ml/min Glucose (74-106) mg/dL Calcium (8.5-10.1) mg/dL Total Bilirubin (0.2-1.0) mg/dL AST (15-37) IU/L ALT (14-63) IU/L Alkaline Phosphatase (46-116) U/L Total Protein (6.4-8.2) g/dL Albumin (3.4-5.0) g/dL Globulin (2.6-4.0) g/dL Albumin/Globulin Ratio (0.9-1.6) Lipase (73-393) U/L Urine Color YELLOW Urine Appearance CLEAR Urine pH 8.0 (5.0-8.0) Ur Specific [place] 1.015 (1.001-1.035) Urine Protein NEGATIVE (NEGATIVE) mg/dL Urine Glucose (UA) NEGATIVE (NEGATIVE) mg/dL Urine Ketones NEGATIVE (NEGATIVE) mg/dL Urine Occult Blood NEGATIVE (NEGATIVE) Urine Nitrite NEGATIVE (NEGATIVE) Urine Bilirubin NEGATIVE (NEGATIVE) Urine Urobilinogen 0.2 (<2.0) EU/dL Ur Leukocyte Esterase NEGATIVE (NEGATIVE) COVID-19 (FORTINO) NEGATIVE (NEGATIVE) Monoscreen (NEG) Meds: Medications Discontinued Medications Generic Name Dose Route Start Last Admin Trade Name Freq PRN Reason Stop Dose Admin Sodium Chloride 1,000 mls @ 999 mls/hr 04/20/20 10:30 04/20/20 10:40 Normal Saline IV 04/20/20 11:30 999 mls/hr STAT ONE Administration Ketorolac Tromethamine 30 mg 04/20/20 10:30 04/20/20 10:40 Toradol IVPUSH 04/20/20 10:31 30 mg ONETIME ONE Administration Departure - Departure Time of Disposition: 12:36 Disposition: Home, Self-Care 01 Clinical Impression: Viral illness - Discharge Information Instructions: Viral Illness, Adult Referrals: PCP,None [Primary Care Provider] - Forms: ED Department Discharge Additional Instructions: The following information is given to patients seen in the emergency department who are being discharged to home. This information is to outline your options for follow-up care. We provide all patients seen in our emergency department with a follow-up referral. The need for follow-up, as well as the timing and circumstances, are variable depending upon the specifics of your emergency department visit. If you don't have a primary care physician on staff, we will provide you with a referral. We always advise you to contact your personal physician following an emergency department visit to inform them of the circumstance of the visit and for follow-up with them and/or the need for any referrals to a consulting specialist. The emergency department will also refer you to a specialist when appropriate. This referral assures that you have the opportunity for follow-up care with a specialist. All of these measure are taken in an effort to provide you with optimal care, which includes your follow-up. Under all circumstances we always encourage you to contact your private physician who remains a resource for coordinating your care. When calling for follow-up care, please make the office aware that this follow-up is from your recent emergency room visit. If for any reason you are refused follow-up, please contact the [facility] Emergency Department at and asked to speak to the emergency department charge nurse. [facility] [address] [place] [id number] [facility] [address] [place] [id number] Thank you for choosing the [facility] emergency department in [place] for your medical needs today. It was a pleasure caring for you. You were seen in the emergency department for fatigue, body aches, and headache. 1. Your lab work today was normal (CBC, CMP, Strep Screening, COVID-19, mono, and urinalysis). Please use Tylenol and/or Ibuprofen as needed for pain and fever management. 2. Get plenty of Rest. Encourage fluids to prevent dehydration. 3. Please follow up with your primary care provider. Return to the ED as needed as discussed. Sepsis Event Note (ED) - Evaluation Sepsis Screening Result: No Definite Risk - Focused Exam Vital Signs: Vital Signs Temp Pulse Resp BP Pulse Ox 04/20/20 10:24 96.8 F L 104 H 16 152/95 H 96 - My Orders Last 24 Hours: My Active Orders 04/20/20 10:40 CULTURE STREP A CONFIRMATION [RM] Stat STREP SCRN A RAPID W CULT CONF [RM] Stat - Assessment/Plan Last 24 Hours: My Active Orders 04/20/20 10:40 CULTURE STREP A CONFIRMATION [RM] Stat STREP SCRN A RAPID W CULT CONF [RM] Stat
[2020-04-20 11:25] LABS: BLOOD UREA NITROGEN,BUN 22 mg/dL (7.0-18.0); CARBON DIOXIDE,CO2 28.9 mmol/L (21.0-32.0); CHLORIDE,CL 103 mmol/L (98-107); GLUCOSE RANDOM 94 mg/dL (74-106); LIPASE 182 U/L (73-393); POTASSIUM,K 3.7 mmol/L (3.5-5.1); SODIUM,NA 142 mmol/L (136-145)
== END 2020-04-20 12:54 | disposition home or self-care (01) ==
LOC: MW.ED 10:10
DX: B34.9 Viral infection, unspecified (principal); Z20.828 Contact with and (suspected) exposure to other viral communicable diseases
CPT/HCPCS: 36415; 80053; 81003; 83690; 85025; 86308; 87081; 87635; 87880; 96374; 99283; J1885; J7030; U0002

== ENCOUNTER 2020-08-25 08:19 | Day surgery (SDC) | payer MEDICAID ==
[~2020-08-25 08:19] MED LIST: Lactated Ringers 1,000 ML IV SCH; Sodium Chloride 0.9% 10 ML SDV IV PRN; Sodium Chloride 0.9% 10 ML Syringe FLUSH PRN; Sodium Chloride 0.9% 2.5 ML Syringe FLUSH PRN
[2020-08-25] MEDS ORDERED: Lidocaine 2% 5 ML SDV ONE (08:47)
[2020-08-25] MEDS ORDERED: Midazolam 1 MG/ML 2 ML SDV ONE (08:48)
[2020-08-25] MEDS ORDERED: fentaNYL 100 MCG/2 ML SDV ONE (08:48)
[2020-08-25] MEDS ORDERED: Propofol 200 MG/20 ML SDV ONE (08:48)
--- NOTE | 2020-08-25 08:55 | PCM.PREANE ---
Preanesthetic Assessment - Anesthesia/Transfusion/Family Hx Anesthesia History: Prior Anesthesia Without Reaction Family History of Anesthesia Reaction: No Transfusion History: No Prior Transfusion(s) - Review of Systems General: No Symptoms Pulmonary: No Symptoms Cardiovascular: No Symptoms Gastrointestinal: No Symptoms Neurological: No Symptoms Other: Reports: None - Physical Assessment Height: 5 ft 8 in Weight: 75.296 kg ASA Class: 2 Mental Status: Alert & Oriented x3 Airway Class: Mallampati = 2 Dentition: Reports: Normal Dentition ROM/Head Extension: Full Lungs: Clear to Auscultation, Normal Respiratory Effort Cardiovascular: Regular Rate, Regular Rhythm - Lab Values: Laboratory Last Values SARS-CoV-2 RNA (FORTINO) NEGATIVE (NEGATIVE) 08/25/20 07:25 - Allergies Allergies/Adverse Reactions: Allergies Allergy/AdvReac Type Severity Reaction Status Date / Time No Known Allergies Allergy Verified 08/19/20 12:36 - Blood Blood Available: No - Anesthesia Plan Pre-Op Medication Ordered: None - Acknowledgements Anesthesia Type Planned: General Anesthesia Pt an Appropriate Candidate for the Planned Anesthesia: Yes Alternatives and Risks of Anesthesia Discussed w Pt/Guardian: Yes Pt/Guardian Understands and Agrees with Anesthesia Plan: Yes Additional Comments: PMH: gerd, hld, smoker, daily alcohol use PLAN: ga- mask or LMA PreAnesthesia Questionnaire HEENT History: Reports: Other (See Below) Other HEENT History: readers Cardiovascular History: Reports: High Cholesterol Respiratory History: Reports: None, Other (See Below) Other Respiratory History: smokes 1/2 pack of cigarettes per day for over 40 years Gastrointestinal History: Reports: GERD Genitourinary History: Reports: None CABLE DISPATCHER History: Reports: Musculoskeletal History: Reports: Back Pain, Chronic Neurological History: Reports: None Psychiatric History: Reports: Anxiety, PTSD Endocrine/Metabolic History: Reports: Hypothyroidism, Other (See Below) Other Endocrine/Metabolic History: on thyroid medication in the past Hematologic History: Reports: None Immunologic History: Reports: None Oncologic (Cancer) History: Reports: None Dermatologic History: Reports: None - Infectious Disease History Infectious Disease History: Reports: None - Past Surgical History Head Surgeries/Procedures: Reports: None HEENT Surgical History: Reports: Other (See Below) Other HEENT Surgeries/Procedures: Ear surgery Cardiovascular Surgical History: Reports: None Respiratory Surgical History: Reports: None GI Surgical History: Reports: None Female Surgical History: Reports: Section Endocrine Surgical History: Reports: None Neurological Surgical History: Reports: None Musculoskeletal Surgical History: Reports: None Oncologic Surgical History: Reports: None Dermatological Surgical History: Reports: None - SUBSTANCE USE Tobacco Use Status *Q: Current Every Day Tobacco User Tobacco Use Within Last Twelve Months: Cigarettes Days Per Week of Alcohol Use: 7 Number of Drinks Per Day: 2 Total Drinks Per Week: 14 - HOME MEDS Home Medications: Home Meds Naproxen Sodium [Aleve] 1 - 2 tab PO ASDIRECTED PRN 08/19/20 [History] Omeprazole 1 tab PO DAILY PRN 08/19/20 [History] atorvaSTATin Calcium [Atorvastatin Calcium] 40 mg PO DAILY 08/19/20 [History] - CURRENT (IN HOUSE) MEDS Current Meds: Current Medications Lactated Ringer's (Ringers, Lactated) 1,000 mls @ 125 mls/hr IV ASDIRECTED JESSA Sodium Chloride (Saline Flush) 10 ml FLUSH ASDIRECTED PRN PRN Reason: Keep Vein Open Sodium Chloride (Saline Flush) 2.5 ml FLUSH ASDIRECTED PRN PRN Reason: Keep Vein Open Sodium Chloride (Normal Saline) 10 ml IV ASDIRECTED PRN PRN Reason: IV Use Discontinued Medications Fentanyl (Sublimaze) Confirm Administered Dose 100 mcg .ROUTE .STK-MED ONE Stop: 08/25/20 08:49 Lidocaine (Xylocaine-Mpf 2%) Confirm Administered Dose 5 ml .ROUTE .STK-MED ONE Stop: 08/25/20 08:48 Midazolam HCl (Versed 1 Mg/Ml) Confirm Administered Dose 2 mg .ROUTE .STK-MED ONE Stop: 08/25/20 08:49 Propofol (Diprivan 20 Ml) Confirm Administered Dose 400 mg .ROUTE .STK-MED ONE Stop: 08/25/20 08:49
[2020-08-25] MEDS ORDERED: fentaNYL 100 MCG/2 ML SDV IVPUSH PRN (09:26)
[2020-08-25] MEDS ORDERED: Atropine 0.1 MG/ML 10 ML Syringe IVPUSH PRN ×2 (09:26)
[2020-08-25] MEDS ORDERED: 50% Dextrose in Water 50 ML Syringe IVPUSH PRN (09:26)
[2020-08-25] MEDS ORDERED: Naloxone 0.4 MG/ML Syringe IVPUSH PRN (09:26)
[2020-08-25] MEDS ORDERED: EPINEPHrine 1:10,000 1 MG/10 ML Syringe IVPUSH PRN (09:26)
[2020-08-25] MEDS ORDERED: Albuterol 0.083% 2.5 MG/3 ML Neb Soln NEB PRN (09:26)
[2020-08-25] MEDS ORDERED: Acetaminophen/HYDROcodone 325-5 MG Tab PO PRN (09:54)
[2020-08-25] MEDS ORDERED: Ketorolac 15 MG/ML SDV IVPUSH PRN (09:54)
--- NOTE | 2020-08-25 09:58 | PCM.OPNOTE ---
- General Post-Op/Procedure Note Date of Surgery/Procedure: 08/25/20 Operative Procedure(s): LEEP Findings: Grossly normal appearing cervix Small area of acetowhite changes at 6:00 Pre Op Diagnosis: AURELIO 2 on cervical biopsy. +HPV (non-16/18) Post-Op Diagnosis: AURELIO 2 on cervical biopsy. +HPV (non-16/18) Anesthesia Technique: MAC Primary Surgeon: Otilia Gurrola Pathology: Ectocervix Fluid Replacement, Intraop: 600 EBL in mLs: 0 Complications: None Condition: Good Free Text/Narrative:: 20x8mm loop used
--- NOTE | 2020-08-25 10:19 | PCM.POSTAN ---
POST ANESTHESIA ASSESSMENT - MENTAL STATUS Mental Status: Alert, Oriented - VITAL SIGNS Vital Signs: Last Vital Signs Temp 97.6 F 08/25/20 09:49 Pulse 76 08/25/20 10:10 Resp 12 08/25/20 10:10 BP 114/69 08/25/20 10:10 Pulse Ox 97 08/25/20 10:10 - RESPIRATORY Respiratory Status: Respiratory Rate WNL, Airway Patent, O2 Saturation Stable - CARDIOVASCULAR CV Status: Pulse Rate WNL, Blood Pressure Stable - GASTROINTESTINAL GI Status: No Symptoms - POST OP HYDRATION Hydration Status: Adequate & Stable
--- NOTE | 2020-08-25 10:19 | PCM48HPAN ---
Post Anesthesia Note - EVALUATION WITHIN 48HRS OF ANESTHETIC Vital Signs in Normal Range: Yes Patient Participated in Evaluation: Yes Respiratory Function Stable: Yes Airway Patent: Yes Cardiovascular Function Stable: Yes Hydration Status Stable: Yes Pain Control Satisfactory: Yes Nausea and Vomiting Control Satisfactory: Yes Mental Status Recovered: Yes Vital Signs: Last Vital Signs Temp 97.6 F 08/25/20 09:49 Pulse 76 08/25/20 10:10 Resp 12 08/25/20 10:10 BP 114/69 08/25/20 10:10 Pulse Ox 97 08/25/20 10:10
[2020-08-25 10:27] VITALS: BP 121/71; PULSE 80
--- NOTE | 2020-08-25 12:42 | OR ---
SURGEON: Otilia Gurrola MD DATE OF PROCEDURE: 08/25/2020 PREOPERATIVE DIAGNOSES: 1. 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 2. Low-grade squamous intraepithelial lesion, Pap. 3. Positive human papillomavirus, non-16/18. POSTOPERATIVE DIAGNOSES: 1. 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 2. Low-grade squamous intraepithelial lesion, Pap. 3. Positive human papillomavirus, non-16/18. PROCEDURE: Loop electrosurgical excision procedure. PRIMARY SURGEON: Otilia Gurrola MD ANESTHESIA: MAC. IV FLUIDS: 600 mL. ESTIMATED BLOOD LOSS: 0. FINDINGS: Small area of acetowhite changes at 6 o'clock of cervix. INDICATIONS: This is a 49-year-old who had an LSIL Pap at an outside facility. She underwent colposcopy with a biopsy at 6 o'clock showing AURELIO-2. The ECC showed minimal histologic change. The ASCCP guidelines were reviewed with the patient and an excisional procedure was recommended. The patient agreed to having a LEEP performed for diagnosis and treatment. DESCRIPTION OF PROCEDURE: The patient was taken to the operating room where MAC was obtained. She was placed in the dorsal lithotomy position with legs in Yellofins stirrups. She was draped in normal sterile fashion. An insulated bivalve speculum was inserted into the vagina to expose the cervix. The cervix was swabbed with acetic acid to delineate the abnormal area of the transformation zone. The cervix was infiltrated with 1% lidocaine with epinephrine for anesthesia. A 20 x 8 mm loop electrode was then obtained and a cone biopsy was carried out using current of 60 gonzales cutting and 40 gonzales coagulation. There was scant bleeding encountered. The LEEP bed was cauterized with ball electrode. Monsel's solution was placed. All instruments removed. The patient was awakened from anesthesia and taken to the recovery room in stable condition. [id number] / MODL /[id number] TASIA
== END 2020-08-25 10:32 | disposition home or self-care (01) ==
LOC: MW.SDS 08:19
PROVIDERS: ATTEND Obstetrics & Gynecology
DX: N87.1 Moderate cervical dysplasia (principal); B97.7 Papillomavirus as the cause of diseases classified elsewhere; K21.9 Gastro-esophageal reflux disease without esophagitis; E78.1 Pure hyperglyceridemia; F17.210 Nicotine dependence, cigarettes, uncomplicated; F41.9 Anxiety disorder, unspecified; E03.9 Hypothyroidism, unspecified; Z01.812 Encounter for preprocedural laboratory examination; Z20.828 Contact with and (suspected) exposure to other viral communicable diseases; G89.29 Other chronic pain; Z79.899 Other long term (current) drug therapy; Z98.890 Other specified postprocedural states
CPT/HCPCS: 57522; 84703; 85027; 87635; J2001; J2250; J2704; J7120; 00940; 88307; J3010; U0002

== ENCOUNTER 2020-10-05 10:45 | Emergency (ER) | payer MEDICAID ==
--- NOTE | 2020-10-05 11:04 | EDM.PDOC ---
ED HPI GENERAL MEDICAL PROBLEM - General Chief Complaint: Neck Problem Stated Complaint: NECK PAIN Time Seen by Provider: 10/05/20 10:47 Source of Information: Reports: Patient History Limitations: Reports: No Limitations - History of Present Illness INITIAL COMMENTS - FREE TEXT/NARRATIVE: Patient is a 49-year-old female who recently had a spinal stenosis surgery done about 5 days ago presents today for neck pain. Patient that she was sent home with [facility] and they have not been relieved the pain. Patient that she took a dose larger than her normal to control her pain last night which did not help. Patient denies any swelling to her neck fever chills difficulty swallowing or breathing. Patient reports some tingling in her bilateral arms have been present even before the surgery. Patient denies any other neurological complaints neck Pain Score (Numeric/FACES): 10 - Related Data Allergies Allergy/AdvReac Type Severity Reaction Status Date / Time No Known Allergies Allergy Verified 10/05/20 10:55 Home Meds: Home Meds Naproxen Sodium [Aleve] 1 - 2 tab PO ASDIRECTED PRN 08/19/20 [History] Omeprazole 1 tab PO DAILY PRN 08/19/20 [History] atorvaSTATin Calcium [Atorvastatin Calcium] 40 mg PO DAILY 08/19/20 [History] Acetaminophen/oxyCODONE [Percocet 325-5 MG] 1 each PO Q8HR 7 Days #21 tab 10/05/20 [Rx] Past Medical History HEENT History: Reports: Other (See Below) Other HEENT History: readers Cardiovascular History: Reports: High Cholesterol Respiratory History: Reports: None, Other (See Below) Other Respiratory History: smokes 1/2 pack of cigarettes per day for over 40 years Gastrointestinal History: Reports: GERD Genitourinary History: Reports: None 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 POLISHER History: Reports: Musculoskeletal History: Reports: Back Pain, Chronic Neurological History: Reports: None Psychiatric History: Reports: Anxiety, PTSD Endocrine/Metabolic History: Reports: Hypothyroidism, Other (See Below) Other Endocrine/Metabolic History: on thyroid medication in the past Hematologic History: Reports: None Immunologic History: Reports: None Oncologic (Cancer) History: Reports: None Dermatologic History: Reports: None - Infectious Disease History Infectious Disease History: Reports: Chicken Pox - Past Surgical History Head Surgeries/Procedures: Reports: None HEENT Surgical History: Reports: Other (See Below) Other HEENT Surgeries/Procedures: Ear surgery Cardiovascular Surgical History: Reports: None Respiratory Surgical History: Reports: None GI Surgical History: Reports: None Female Surgical History: Reports: Section Endocrine Surgical History: Reports: None Neurological Surgical History: Reports: None Musculoskeletal Surgical History: Reports: None Oncologic Surgical History: Reports: None Dermatological Surgical History: Reports: None Social & Family History - Family History Family Medical History: No Pertinent Family History - Caffeine Use Caffeine Use: Reports: Coffee ED ROS GENERAL - Review of Systems Review Of Systems: See Below Constitutional: Reports: No Symptoms HEENT: Reports: Other (neck pain ) Respiratory: Reports: No Symptoms Cardiovascular: Reports: No Symptoms Endocrine: Reports: No Symptoms GI/Abdominal: Reports: No Symptoms : Reports: No Symptoms Musculoskeletal: Reports: No Symptoms Skin: Reports: No Symptoms Neurological: Reports: No Symptoms Psychiatric: Reports: No Symptoms Hematologic/Lymphatic: Reports: No Symptoms Immunologic: Reports: No Symptoms ED EXAM, GENERAL - Physical Exam Exam: See Below Exam Limited By: No Limitations General Appearance: Alert, WD/WN, No Apparent Distress Neck: Limited Range of Motion, Tender Midline Respiratory/Chest: No Respiratory Distress, Lungs Clear, Normal Breath Sounds Cardiovascular: Normal Peripheral Pulses, Regular Rate, Rhythm GI/Abdominal: Normal Bowel Sounds, Soft, Non-Tender Extremities: Normal Range of Motion, Other (5/5 UEs) Neurological: Alert, Oriented, CN II-XII Intact Course - Vital Signs Last Recorded V/S: Last Vital Signs Temp 97.7 F 10/05/20 10:52 Pulse 103 H 10/05/20 14:29 Resp 20 10/05/20 14:29 BP 162/113 H 10/05/20 14:29 Pulse Ox 97 10/05/20 14:29 - Orders/Labs/Meds Labs: Laboratory Tests 10/05/20 10/05/20 10/05/20 Range/Units 10:55 10:55 10:55 WBC 9.36 (4.0-11.0) K/uL RBC 3.99 L (4.30-5.90) M/uL Hgb 13.7 (12.0-16.0) g/dL Hct 42.2 (36.0-46.0) % MCV 105.8 H (80.0-98.0) fL MCH 34.3 H (27.0-32.0) pg MCHC 32.5 (31.0-37.0) g/dL RDW Std Deviation 49.1 (28.0-62.0) fl RDW Coeff of Favio 13 (11.0-15.0) % Plt Count 258 (150-400) K/uL MPV 11.00 (7.40-12.00) fL Neut % (Auto) 61.0 (48.0-80.0) % Lymph % (Auto) 29.7 (16.0-40.0) % [place] % (Auto) 6.9 (0.0-15.0) % Eos % (Auto) 2.1 (0.0-7.0) % Baso % (Auto) 0.3 (0.0-1.5) % Neut # (Auto) 5.7 (1.4-5.7) K/uL Lymph # (Auto) 2.8 H (0.6-2.4) K/uL [place] # (Auto) 0.7 (0.0-0.8) K/uL Eos # (Auto) 0.2 (0.0-0.7) K/uL Baso # (Auto) 0.0 (0.0-0.1) K/uL Nucleated RBC % 0.0 /100WBC Nucleated RBCs # 0 K/uL INR 0.98 APTT (18.6-31.3) SEC Sodium 143 (136-145) mmol/L Potassium 3.7 (3.5-5.1) mmol/L Chloride 102 (98-107) mmol/L Carbon Dioxide 33.3 H (21.0-32.0) mmol/L BUN 15 (7.0-18.0) mg/dL Creatinine 0.7 (0.6-1.0) mg/dL Est Cr Clr Drug Dosing 98.07 mL/min Estimated GFR (MDRD) > 60.0 ml/min Glucose 103 (74-106) mg/dL Calcium 9.2 (8.5-10.1) mg/dL Phosphorus 4.1 (2.6-4.7) mg/dL Magnesium 1.9 (1.8-2.4) mg/dL Total Bilirubin 0.7 (0.2-1.0) mg/dL AST 229 H (15-37) IU/L ALT 254 H (14-63) IU/L Alkaline Phosphatase 140 H (46-116) U/L Creatine Kinase 117 (26-308) U/L Total Protein 7.5 (6.4-8.2) g/dL Albumin 3.7 (3.4-5.0) g/dL Globulin 3.8 (2.6-4.0) g/dL Albumin/Globulin Ratio 1.0 (0.9-1.6) 10/05/20 Range/Units 10:55 WBC (4.0-11.0) K/uL RBC (4.30-5.90) M/uL Hgb (12.0-16.0) g/dL Hct (36.0-46.0) % MCV (80.0-98.0) fL MCH (27.0-32.0) pg MCHC (31.0-37.0) g/dL RDW Std Deviation (28.0-62.0) fl RDW Coeff of Favio (11.0-15.0) % Plt Count (150-400) K/uL MPV (7.40-12.00) fL Neut % (Auto) (48.0-80.0) % Lymph % (Auto) (16.0-40.0) % [place] % (Auto) (0.0-15.0) % Eos % (Auto) (0.0-7.0) % Baso % (Auto) (0.0-1.5) % Neut # (Auto) (1.4-5.7) K/uL Lymph # (Auto) (0.6-2.4) K/uL [place] # (Auto) (0.0-0.8) K/uL Eos # (Auto) (0.0-0.7) K/uL Baso # (Auto) (0.0-0.1) K/uL Nucleated RBC % /100WBC Nucleated RBCs # K/uL INR APTT 26.6 (18.6-31.3) SEC Sodium (136-145) mmol/L Potassium (3.5-5.1) mmol/L Chloride (98-107) mmol/L Carbon Dioxide (21.0-32.0) mmol/L BUN (7.0-18.0) mg/dL Creatinine (0.6-1.0) mg/dL Est Cr Clr Drug Dosing mL/min Estimated GFR (MDRD) ml/min Glucose (74-106) mg/dL Calcium (8.5-10.1) mg/dL Phosphorus (2.6-4.7) mg/dL Magnesium (1.8-2.4) mg/dL Total Bilirubin (0.2-1.0) mg/dL AST (15-37) IU/L ALT (14-63) IU/L Alkaline Phosphatase (46-116) U/L Creatine Kinase (26-308) U/L Total Protein (6.4-8.2) g/dL Albumin (3.4-5.0) g/dL Globulin (2.6-4.0) g/dL Albumin/Globulin Ratio (0.9-1.6) Meds: Medications Discontinued Medications Generic Name Dose Route Start Last Admin Trade Name Freq PRN Reason Stop Dose Admin Diazepam 5 mg 10/05/20 11:32 10/05/20 11:36 Valium IVPUSH 10/05/20 11:33 5 mg ONETIME ONE Administration Fentanyl 25 mcg 10/05/20 10:58 10/05/20 11:10 Fentanyl IVPUSH 10/05/20 10:59 25 mcg ONETIME ONE Administration Fentanyl 50 mcg 10/05/20 11:30 10/05/20 11:35 Fentanyl IVPUSH 10/05/20 11:31 50 mcg ONETIME ONE Administration Iopamidol 75 ml 10/05/20 12:03 10/05/20 12:03 Isovue Multipack-370 (76%) IVPUSH 10/05/20 12:04 75 ml ONETIME ONE Administration - Re-Assessments/Exams Free Text/Narrative Re-Assessment/Exam: 10/05/20 14:08 Patient was made aware of her CT findings. Patient has no difficulty breathing his neighbor noticed that her neck is swollen. The CT scan did show some mild narrowing of her trachea. Patient does not have any respiratory complications or need to be intubated at this time. Patient pain has been improved here. We call my not and spoke to Dr. Delacruz on-call for neurosurgery and made her aware of the seroma. The seroma is large in size and may eventually need to be drained. Patient will be seen by neurosurgery tomorrow morning at 9 AM. We stressed how important it is for the patient to follow-up with his appointment tomorrow morning she spoke to her and he will drive her at 9 AM. Has good strength in her upper extremities and is stable for discharge and again has been given strict return precautions. 10/05/20 14:37 Offer the patient to be transferred as I did have concerns about the patient's airway patient states she is breathing fine able to maintain. Patient also wanted to going grab food which I told her I would not recommend she may possibly need a procedure intubation for airway decompensates that she is aware and is breathing fine will rather be seen by her neurosurgeon tomorrow 9 AM. Departure - Departure Time of Disposition: 14:36 Disposition: Home, Self-Care 01 Condition: Good Clinical Impression: Cervical radiculopathy - Discharge Information *PRESCRIPTION DRUG MONITORING PROGRAM REVIEWED*: Not Applicable Prescriptions: Acetaminophen/oxyCODONE [Percocet 325-5 MG] 1 each PO Q8HR 7 Days #21 tab Instructions: Muscle Pain, Adult, Cervical Sprain, [id number] Referrals: Ambar Miller, [Primary Care Provider] - Forms: ED Department Discharge Additional Instructions: The following information is given to patients seen in the emergency department who are being discharged to home. This information is to outline your options for follow-up care. We provide all patients seen in our emergency department with a follow-up referral. The need for follow-up, as well as the timing and circumstances, are variable depending upon the specifics of your emergency department visit. If you don't have a primary care physician on staff, we will provide you with a referral. We always advise you to contact your personal physician following an emergency department visit to inform them of the circumstance of the visit and for follow-up with them and/or the need for any referrals to a consulting specialist. The emergency department will also refer you to a specialist when appropriate. This referral assures that you have the opportunity for follow-up care with a specialist. All of these measure are taken in an effort to provide you with optimal care, which includes your follow-up. Under all circumstances we always encourage you to contact your private physician who remains a resource for coordinating your care. When calling for follow-up care, please make the office aware that this follow-up is from your recent emergency room visit. If for any reason you are refused follow-up, please contact the [facility] Emergency Department at and asked to speak to the emergency department charge nurse. Please follow up with your primary care physician. If you do not have a primary care physician, see below: Cali Concepcion MD Neurosurgery Located in: [facility] Address: [id number] [place] [id number] Please follow-up with your neurosurgeon tomorrow morning at 9 AM. If for any reason you cannot make appointment please return to the ED here immediately. If you have any difficulty breathing or swallowing please return to ED immediately. If you have any weakness in your arm also return to the ED. Sepsis Event Note (ED) - Evaluation Sepsis Screening Result: No Definite Risk - Focused Exam Vital Signs: Vital Signs Temp Pulse Resp BP Pulse Ox 10/05/20 14:29 103 H 20 162/113 H 97 10/05/20 13:22 80 18 148/88 H 98 10/05/20 12:25 92 18 158/87 H 93 L 10/05/20 10:52 97.7 F 104 H 20 187/99 H 94 L - Assessment/Plan Assessment:: Patient is a 49-year-old who had a recent spinal stenosis surgery presents today for pain. Patient denies any new neurological symptoms. There is some swelling to the anterior part of the neck with patient has no difficulty swallowing or breathing. Patient herself is not having noticed swelling. We will obtain labs and CT scan to evaluate this cervical spine also of the anterior neck.
[2020-10-05] MEDS: fentaNYL 50 MCG/ML SDV IVPUSH ONE ×2 (11:10→11:35)
[2020-10-05 11:25] LABS: BLOOD UREA NITROGEN,BUN 15 mg/dL (7.0-18.0); CARBON DIOXIDE,CO2 33.3 mmol/L (21.0-32.0); CHLORIDE,CL 102 mmol/L (98-107); GLUCOSE RANDOM 103 mg/dL (74-106); POTASSIUM,K 3.7 mmol/L (3.5-5.1); SODIUM,NA 143 mmol/L (136-145)
[2020-10-05] MEDS: Iopamidol 755 MG/ML 500 ML Multipack Bottle IVPUSH ONE (12:03)
--- NOTE | 2020-10-05 13:17 | CT ---
INDICATION: Recent spinal fusion surgery 5 days ago. Anterior swelling. Left-sided neck pain. TECHNIQUE: CT neck: CT images were acquired through the neck following administration of intravenous contrast. CT cervical spine: Noncontrast CT images were acquired through the cervical spine. COMPARISON: MRI cervical spine 09/02/2020. FINDINGS: CT NECK: Postsurgical changes of recent anterior cervical discectomy and fusion from C4-5 through C6-7. Hypoattenuating postoperative fluid collection along the surgical tract within the right anterior neck and involving the prevertebral soft tissues from C4 through T1-2 measuring approximately 4.4 x 2.9 x 7.8 cm (AP oblique/TR oblique/CC). The collection is without significant peripheral enhancement. Mass effect results in leftward deviation of the esophagus, as well as anterior displacement of the upper trachea with minimal luminal narrowing. There is also ill-defined prevertebral fluid extending cephalad to the C2 level associated with mild narrowing of the supraglottic laryngeal and oropharyngeal airways. No enhancing lesions in the oral cavity or floor of mouth. The parotid and submandibular glands without enhancing lesions or calcifications. No pathologically enlarged lymph nodes. The thyroid gland demonstrates homogeneous enhancement. Limited images through the brain without intracranial mass effect. The visualized paranasal sinuses and mastoid air cells are clear. Postsurgical changes of canal wall down left mastoidectomy with mild debris/soft tissue in the mastoid bowl. Multifocal dental disease including dental caries and periapical lucencies involving maxillary and mandibular teeth. The visualized lungs are notable for mild dependent atelectasis. CT CERVICAL SPINE: Postsurgical changes of recent anterior cervical discectomy and fusion from C4-5 through C6-7. Standard positioning and alignment of surgical hardware. Hypoattenuating fluid collection along the surgical tract within the right anterior cervical neck and extending into the prevertebral soft tissues, as described above. Slight focal reversal of the cervical lordosis at C6-7. No acute fracture or traumatic subluxation. Degenerative changes at the atlantodental articulation. C2-3: Advanced left facet arthropathy. No spinal canal narrowing. Mild left without right neural foraminal narrowing. C3-4: Mild grade 1 anterolisthesis. Advanced bilateral facet arthropathy. Bilateral uncinate spurring. Shallow disc bulge. Mild spinal canal narrowing. Moderate bilateral neural foraminal narrowing. C4-5: Postsurgical changes of anterior fusion. Shallow posterior disc osteophyte complex. Bilateral uncinate spurring. Advanced facet arthropathy. Moderate spinal canal narrowing. Severe bilateral neural foraminal stenosis. C5-6: Postsurgical changes of anterior fusion. Mild grade 1 anterolisthesis. Advanced bilateral facet arthropathy. Mild spinal canal narrowing. [id number] bilateral neural foraminal narrowing. C6-7: Postsurgical changes of anterior fusion. Posterior disc osteophyte complex. Bilateral uncinate spurring. [id number] bilateral facet arthropathy. Moderate spinal canal narrowing. Severe bilateral neural foraminal stenosis. C7-T1: Mild grade 1 anterolisthesis. Advanced bilateral facet arthropathy. No spinal canal narrowing. [id number] bilateral neural foraminal narrowing. IMPRESSION 1. Postsurgical changes of recent anterior cervical discectomy and fusion from C4-5 through C6-7. Standard positioning and alignment of surgical hardware. Hypoattenuating 7.8 cm fluid collection within the prevertebral space from C4 through T1-2 and extending along the surgical tract in the right anterior cervical neck is favored to represent a developing seroma. Mass effect results in anterior displacement and minimal narrowing of the upper tracheal lumen. There is also ill-defined prevertebral fluid extending cephalad to the C2 level associated with mild narrowing of the supraglottic laryngeal and oropharyngeal airways. 2. Multilevel cervical spondylosis includes severe bilateral neural foraminal stenosis and moderate spinal canal narrowing at C4-5 and C6-7. Please note that all CT scans at this facility use dose modulation, iterative reconstruction, and/or weight-based dosing when appropriate to reduce radiation dose to as low as reasonably achievable. Dictated by David Beltran MD @ Oct 05 2020 12:39PM Signed by Dr. David Beltran @ Oct 05 2020 1:15PM
--- NOTE | 2020-10-05 13:23 | CT ---
INDICATION: Status post recent spinal fusion 5 days ago. Anterior neck swelling. Left-sided neck pain. Pain radiating into the shoulders. TECHNIQUE: Noncontrast CT images were acquired through the thoracic spine. COMPARISON: None. FINDINGS: The thoracic kyphosis is preserved. Mild chronic anterior wedging of the T7 vertebral body. No acute fracture. Minimal grade 1 anterolisthesis of T2 on T3. Moderate facet arthropathy from T2-3 and through T4-5. Small Schmorl`s nodes in the mid and lower thoracic spine. No spinal canal or neural foraminal stenosis. The visualized lungs are notable for mild dependent atelectasis. Postsurgical changes of recent C4-5 through C6-7 anterior cervical discectomy and fusion, better characterized on the concurrent CT cervical spine. IMPRESSION: 1. No acute fracture. 2. Moderate multilevel facet arthropathy in the upper thoracic spine without spinal canal or neural foraminal stenosis. 3. Postsurgical changes of recent C4-5 through C6-7 anterior cervical discectomy and fusion, better characterized on the concurrent CT cervical spine. Please note that all CT scans at this facility use dose modulation, iterative reconstruction, and/or weight-based dosing when appropriate to reduce radiation dose to as low as reasonably achievable. Dictated by David Beltran MD @ Oct 05 2020 12:39PM Signed by Dr. David Beltran @ Oct 05 2020 1:22PM
[2020-10-05 14:30] VITALS: BP 162/113; PULSE 103
== END 2020-10-05 14:30 | disposition home or self-care (01) ==
LOC: MW.ED 10:45
DX: M54.12 Radiculopathy, cervical region (principal); E78.00 Pure hypercholesterolemia, unspecified; F17.210 Nicotine dependence, cigarettes, uncomplicated; Z79.899 Other long term (current) drug therapy
CPT/HCPCS: 36415; 70491; 72125; 72128; 80053; 82550; 83735; 84100; 85025; 85610; 85730; 96374; 96375; 99284; J3010; J3360; Q9967; 99283

== ENCOUNTER 2020-10-05 22:54 | Emergency (ER) | payer MEDICAID ==
--- NOTE | 2020-10-06 00:07 | EDM.PDOC ---
ED HPI GENERAL MEDICAL PROBLEM - General Chief Complaint: Neck Problem Stated Complaint: RECENT NECK SURGERY, PAIN GETTING WORSE Time Seen by Provider: 10/05/20 23:38 - History of Present Illness INITIAL COMMENTS - FREE TEXT/NARRATIVE: HISTORY AND PHYSICAL: History of present illness: This is a 49-year-old female who presents ER today secondary to pain to her neck. Patient had a recent anterior cervical discectomy with fusion from C4-C7. Patient was seen in the ED earlier today secondary to pain and swelling of her neck. A CT scan of her neck was obtained at that time which was concerning for airway compromise. CT scan revealed a hypoattenuating 7.8 cm fluid collection within the prevertebral space from C4-T1 and extending along the surgical tract in the right anterior cervical neck favored a developing seroma. Mass-effect resulted in anterior displacement and minimal narrowing of the upper tracheal lumen. There is also ill-defined prevertebral fluid extending cephalad to the C2 level associated with mild narrowing of the supraglottic laryngeal and oropharyngeal airways. Case has been discussed with Dr. Delacruz in [facility] and recommendation was for transfer for evaluation by neurosurgery. This was relayed to the patient by Dr. Martines who discussed with her potential for airway compromise and need for transfer for neurosurgical evaluation. Patient refused transfer at that time and was discharged with plan of having her drive her in the morning to [facility] for neurosurgical evaluation. Patient returns to the ER this evening secondary to increased pain to her neck. Patient reports that she was given a prescription for Percocet by Dr. Martines however she was unable to fill it secondary to the pharmacies being closed. At this time, the patient presents ER today amenable to transfer to [facility] for neurosurgical evaluation regarding the concerns regarding airway compromise. Patient reports no change in her respiratory status. Patient reports no difficulty breathing, tolerating secretions, speaking, no change in voice. Patient reports no significant changes other than pain since her discharge from the hospital earlier today. Review of systems: As per history of present illness and below otherwise all systems reviewed and negative. Past medical history: As per history of present illness and as reviewed below otherwise noncontributory. Surgical history: As per history of present illness and as reviewed below otherwise noncontributory. Social history: No reported history of drug or alcohol abuse. Family history: As per history of present illness and as reviewed below otherwise noncontributory. Physical exam: Constitutional: Patient is oriented to person, place, and time. Appears well- developed and well-nourished. No distress. HEENT: Moist mucous membranes Head: Normocephalic and atraumatic Eyes: Right eye exhibits no discharge. Left eye exhibits no discharge. No scleral icterus Neck: Normal range of motion. No tracheal deviation present. Cardiovascular: Normal rate and regular rhythm. Pulmonary: Effort normal, no respiratory distress. Abdominal: No distention Musculoskeletal: Normal range of motion Neurologic: Alert and oriented to person, place and time. Skin: [place], warm and dry. Psychiatric: Normal mood and affect. Behavior is normal. Judgment and thought content normal. Nursing note and vital signs have been reviewed Patient's ER physical exam is significant for a patent oral airway without evidence of obstruction. Patient has no stridor. Patient has no trismus. Patient's voice is not muffled. Patient is trachea appears midline. Patient's uvula appears midline. Patient does not have a hot potato voice. Patient is able to speak with a normal voice. Patient does not appear uncomfortable from a respiratory standpoint. This patient was seen and evaluated during the 2019 SARS-CoV-2 novel coronavirus pandemic period. Community viral transmission is ongoing at time of this encounter and the emergency department is operating under pandemic response procedures. Assessment and plan: 49-year-old female who presents ER today secondary to pain to her neck status post a recent anterior cervical discectomy with fusion from C4-C5 through C6-C7. I have discussed the case with Dr. Delacruz who is agreed to assist us with evaluation of this patient. I have also discussed the case with Dr. Loyd who is the ER physician at [facility] who is agreed to accept the patient for transfer. We will assist with managing patient's pain while in the ED here and for the transfer. Still of concern is patient's airway to make sure that she does not develop an obstruction. At this time, there is no clinical concern for severe airway obstruction. Patient be transferred by ACLS to [facility] for further evaluation and recommendations by Dr. Delacruz and Dr. Concepcion. Definitive disposition and diagnosis as appropriate pending reevaluation and review of above. neck Pain Score (Numeric/FACES): 10 - Related Data Allergies Allergy/AdvReac Type Severity Reaction Status Date / Time No Known Allergies Allergy Verified 10/05/20 23:04 Home Meds: Home Meds Omeprazole 1 tab PO DAILY PRN 08/19/20 [History] atorvaSTATin Calcium [Atorvastatin Calcium] 40 mg PO DAILY 08/19/20 [History] Acetaminophen/oxyCODONE [Percocet 325-5 MG] 1 each PO Q8HR 7 Days #21 tab 10/05/20 [Rx] Past Medical History HEENT History: Reports: Other (See Below) Other HEENT History: readers Cardiovascular History: Reports: High Cholesterol Respiratory History: Reports: None, Other (See Below) Other Respiratory History: smokes 1/2 pack of cigarettes per day for over 40 years Gastrointestinal History: Reports: GERD Genitourinary History: Reports: None 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: Musculoskeletal History: Reports: Back Pain, Chronic Neurological History: Reports: None Psychiatric History: Reports: Anxiety, PTSD Endocrine/Metabolic History: Reports: Hypothyroidism, Other (See Below) Other Endocrine/Metabolic History: on thyroid medication in the past Hematologic History: Reports: None Immunologic History: Reports: None Oncologic (Cancer) History: Reports: None Dermatologic History: Reports: None - Infectious Disease History Infectious Disease History: Reports: Chicken Pox - Past Surgical History Head Surgeries/Procedures: Reports: None HEENT Surgical History: Reports: Other (See Below) Other HEENT Surgeries/Procedures: Ear surgery Cardiovascular Surgical History: Reports: None Respiratory Surgical History: Reports: None GI Surgical History: Reports: None Female Surgical History: Reports: Section, LEEP Endocrine Surgical History: Reports: None Neurological Surgical History: Reports: Spinal Fusion Musculoskeletal Surgical History: Reports: None Oncologic Surgical History: Reports: None Dermatological Surgical History: Reports: None Social & Family History - Family History Family Medical History: No Pertinent Family History - Tobacco Use Tobacco Use Status *Q: Current Every Day Tobacco User Years of Tobacco use: 30 Packs/Tins Daily: 1 - Caffeine Use Caffeine Use: Reports: Coffee - Recreational Drug Use Recreational Drug Use: No ED ROS GENERAL - Review of Systems Review Of Systems: See Below ED EXAM, GENERAL - Physical Exam Exam: See Below Course - Vital Signs Last Recorded V/S: Last Vital Signs Temp 96.9 F 10/05/20 23:05 Pulse 106 H 10/05/20 23:05 Resp 20 10/05/20 23:05 BP 116/85 10/05/20 23:05 Pulse Ox 98 10/05/20 23:05 Departure - Departure Time of Disposition: 00:07 Disposition: DC/Tfer to Acute Hospital 02 Condition: Good Clinical Impression: Postoperative pain after spinal surgery, Seroma after procedure, Disorder of airway - Discharge Information Referrals: Ambar Miller DO [Primary Care Provider] - Sepsis Event Note (ED) - Evaluation Sepsis Screening Result: No Definite Risk - Focused Exam Vital Signs: Vital Signs Temp Pulse Resp BP Pulse Ox 10/05/20 23:05 96.9 F 106 H 20 116/85 98
[2020-10-06] MEDS ORDERED: Sodium Chloride 0.9% 1,000 ML IV ONE (00:09)
[2020-10-06] MEDS ORDERED: HYDROmorphone 1 MG/ML Syringe IVPUSH ONE (00:09)
[2020-10-06] MEDS ORDERED: Ondansetron 4 MG/2 ML SDV IVPUSH ONE (00:09)
[2020-10-06 00:26] VITALS: BP 130/86; PULSE 93
== END 2020-10-06 02:00 ==
LOC: MW.ED 22:54
DX: G89.18 Other acute postprocedural pain (principal); M54.2 Cervicalgia; M96.842 Postprocedural seroma of a musculoskeletal structure following a musculoskeletal system procedure; J98.9 Respiratory disorder, unspecified; K21.9 Gastro-esophageal reflux disease without esophagitis; E78.00 Pure hypercholesterolemia, unspecified; F17.210 Nicotine dependence, cigarettes, uncomplicated; Z79.899 Other long term (current) drug therapy; Z20.822 Contact with and (suspected) exposure to COVID-19
CPT/HCPCS: 87635; 96374; 96375; 99284; J1170; J2405; J7030; U0002

== ENCOUNTER 2020-10-25 21:02 | Emergency (ER) | payer MEDICAID ==
[2020-10-25 21:07] VITALS: BP 138/81; PULSE 113
--- NOTE | 2020-10-26 06:34 | EDM.PDOC ---
ED HPI GENERAL MEDICAL PROBLEM - General Chief Complaint: Drug or Alcohol Abuse Stated Complaint: MENTAL HEALTH Time Seen by Provider: 10/25/20 21:22 - History of Present Illness INITIAL COMMENTS - FREE TEXT/NARRATIVE: CHIEF COMPLAINT(S): "My left me." HISTORY OF PRESENT ILLNESS: This is a 49-year-old woman with a past medical history of spinal stenosis with recent neck surgery who comes to the emergency department with a chief complaint of "my left me." The patient states that her left her and she does not know how to answer why she is here. She states that she called 911 because she needed some help. She denies any suicidal ideation, homicidal ideation. She states that she has been drinking since she was left by her . She states that she wants to go with her mommy in [place]. She states that her phone is and needs a phone keyboarding clerk so that she can contact her so that she can get a flight out back home in [facility]. She states that she drank a half a pint of alcohol today. She denies any head injury or loss of consciousness. She denies any chest pain, shortness of breath, abdominal pain, nausea or vomiting. She denies any other symptoms. REVIEW OF SYSTEMS: Constitutional: Denies fever, chills. Eyes: Denies eye pain Ears, Nose, Mouth, & Throat: Denies earache Cardiovascular: Denies chest pain Respiratory: Denies shortness of breath Gastrointestinal: Denies Nausea, vomiting, diarrhea, hematochezia. Genitourinary: Denies hematuria Skin:Denies a rash Neurological: Denies blurred vision Psychiatric: Positive for alcohol use PAST MEDICAL HISTORY: As per history of present illness and as reviewed below otherwise noncontributory. SURGICAL HISTORY: As per history of present illness and as reviewed below otherwise noncontributory. SOCIAL HISTORY: As per history of present illness and as reviewed below otherwise noncontributory. FAMILY HISTORY: As per history of present illness and as reviewed below otherwise noncontributory. EXAMINATION OF ORGAN SYSTEMS/BODY AREAS: Constitutional: Blood pressure is 138/81, heart rate 113, respiratory rate 20 with an oxygen saturation 95% on room air. Temperature 36.2 General: Middle-aged woman who is tearful but appropriate. She is intoxicated. Psychiatric: Appropriate mood and affect. Eyes: No scleral icterus or conjunctival erythema ENMT: Moist mucous membranes. No pharyngeal erythema Cardiovascular: Tachycardic but regular no gallops, murmurs, or rubs. Bilateral upper extremity pulses symmetric and intact. No peripheral edema. No JVD. Respiratory: Lungs clear to auscultation bilaterally. No wheezes, rales, or rhonchi. Gastrointestinal: Soft, non-tender, non-distended. Normoactive bowel sounds Genitourinary: No suprapubic tenderness Musculoskeletal: Normal range of motion. Ambulating without any difficulty. Skin: No lesions or abrasions. Neurological: Alert, GCS 15 MEDICAL DECISION MAKING AND COURSE IN THE ED WITH INTERPRETATION/REVIEW OF DIAGNOSTIC STUDIES: This is a 49-year-old woman with a past medical history of spinal stenosis with recent neck surgery who comes to the emergency department with acute alcohol intoxication with no complaints at all. At this time given the tachycardia will obtain a screening EKG. We will observe the patient in the emergency department for clinical sobriety. Patient was provided with a keyboarding clerk for her phone. Twelve-lead EKG interpreted by myself. Normal sinus rhythm at a rate of 98beats per minute. Normal axis. W[place] interval is 137ms. QRS duration is 105ms. ST segments are normal without elevations or depressions. No Q waves present. Hypertrophy not noted. Incomplete right bundle branch block no changes demonstrated from prior EKG dated 02/13/2018. Interpretation: Incomplete right bundle branch block. Patient was ambulating without any difficulty in the emergency department. She states that she had a ride. I do believe the patient is stable for discharge. I notified me that the patient eloped. DISPOSITION: The patient eloped CONDITION: Fair PROCEDURES: None FINAL IMPRESSION(S)/DIAGNOSES: 1. Acute alcohol intoxication Dakotah Bell M.D. - Related Data Allergies Allergy/AdvReac Type Severity Reaction Status Date / Time No Known Allergies Allergy Verified 10/25/20 21:04 Home Meds: Home Meds Omeprazole 1 tab PO DAILY PRN 08/19/20 [History] atorvaSTATin Calcium [Atorvastatin Calcium] 40 mg PO DAILY 08/19/20 [History] Past Medical History HEENT History: Reports: Other (See Below) Other HEENT History: readers Cardiovascular History: Reports: High Cholesterol Respiratory History: Reports: None, Other (See Below) Other Respiratory History: smokes 1/2 pack of cigarettes per day for over 40 years Gastrointestinal History: Reports: GERD Genitourinary History: Reports: None 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: Musculoskeletal History: Reports: Back Pain, Chronic Neurological History: Reports: None Psychiatric History: Reports: Anxiety, PTSD Endocrine/Metabolic History: Reports: Hypothyroidism, Other (See Below) Other Endocrine/Metabolic History: on thyroid medication in the past Hematologic History: Reports: None Immunologic History: Reports: None Oncologic (Cancer) History: Reports: None Dermatologic History: Reports: None - Infectious Disease History Infectious Disease History: Reports: Chicken Pox - Past Surgical History Head Surgeries/Procedures: Reports: None HEENT Surgical History: Reports: Other (See Below) Other HEENT Surgeries/Procedures: Ear surgery Cardiovascular Surgical History: Reports: None Respiratory Surgical History: Reports: None GI Surgical History: Reports: None Female Surgical History: Reports: Section, LEEP Endocrine Surgical History: Reports: None Neurological Surgical History: Reports: Spinal Fusion Musculoskeletal Surgical History: Reports: None Oncologic Surgical History: Reports: None Dermatological Surgical History: Reports: None Social & Family History - Family History Family Medical History: No Pertinent Family History - Tobacco Use Tobacco Use Status *Q: Current Every Day Tobacco User Years of Tobacco use: 32 Packs/Tins Daily: 1 - Caffeine Use Caffeine Use: Reports: Coffee - Recreational Drug Use Recreational Drug Use: Yes Recreational Drug Type: Reports: Methamphetamine Other Recreational Drug Type: Did meth 4 days ago Recreational Drug Use Frequency: Rarely ED ROS GENERAL - Review of Systems Review Of Systems: See Below ED EXAM, GENERAL - Physical Exam Exam: See Below Course - Vital Signs Last Recorded V/S: Last Vital Signs Temp 36.2 C 10/25/20 21:05 Pulse 113 H 10/25/20 21:05 Resp 20 10/25/20 21:05 BP 138/81 10/25/20 21:05 Pulse Ox 95 10/25/20 21:05 Departure - Departure Time of Disposition: 23:13 Disposition: Eloped 07 Condition: Fair Clinical Impression: Alcohol intoxication Qualifiers: Complication of substance-induced condition: uncomplicated Qualified Code(s): F10.920 - Alcohol use, unspecified with intoxication, uncomplicated - Discharge Information *PRESCRIPTION DRUG MONITORING PROGRAM REVIEWED*: No *COPY OF PRESCRIPTION DRUG MONITORING REPORT IN PATIENT TREVA: No Instructions: Alcohol Use Disorder Referrals: PCP,None [Primary Care Provider] - Forms: ED Department Discharge Sepsis Event Note (ED) - Evaluation Sepsis Screening Result: No Definite Risk - Focused Exam Vital Signs: Vital Signs Temp Pulse Resp BP Pulse Ox 10/25/20 21:05 36.2 C 113 H 20 138/81 95
== END 2020-10-25 23:15 | disposition left against medical advice (07) ==
LOC: MW.ED 21:02
DX: F10.120 Alcohol abuse with intoxication, uncomplicated (principal); E78.00 Pure hypercholesterolemia, unspecified; K21.9 Gastro-esophageal reflux disease without esophagitis; F17.200 Nicotine dependence, unspecified, uncomplicated; Z79.899 Other long term (current) drug therapy
CPT/HCPCS: 93005; 93010; 99282; 99284-25